=== PATIENT | female | born 1980 | race Caucasian/White ===

== ENCOUNTER 2023-01-08 02:38 | Day surgery (SDC) | payer OTHER, SELFPAY ==
[2022-12-30 15:55] VITALS: BMI 26.3
--- NOTE | 2022-12-30 16:43 | SUR.PREOP ---
Report to the Outpatient Waiting Room, entrance under the green pavilion located off [facility], at time 1100 on date 01/08/23. Planned Procedure Time: 1300. Time changes happen often and if your time is changed the preop area will call you the afternoon before. - You and your visitor will be asked to self-screen and do not enter if you have any COVID symptoms. - A mask is optional within the hospital at this time. Patients may have clear liquids (water, carbonated beverages, clear teas, apple juice) until 3 hours prior to surgery with a maximum of 20 ounces. - No food from midnight until time of surgery BEFORE 10:00 - Infants may have breast milk until 4 hours before surgery, formula 6 hours prior to surgery. - Children will be allowed to drink immediately following surgery. If applicable, please bring a bottle or sippy cup to assist with drinking. Juice, water, soda, and popsicles are readily available. For infants on formula, please bring formula the day of surgery. Pacifiers are allowed. Take the following medications with a SIP of water the morning of surgery: __ATIVAN DO NOT STOP ANY OF YOUR OTHER PRESCRIPTION MEDICATIONS PRIOR TO SURGERY ?EXCEPT THE FOLLOWING Medications to discontinue per physician ___PT STATED SHE IS STOPPING ALL CHEMO DRUGS, SUPPLEMENTS, VITAMINS, 5 DAYS PRIOR. ONCOLOGIST AWARE__ Date to take last dose Please no make-up, nail armenian, hairspray, perfume, deodorant, or body powder the day of surgery. No jewelry (including any body piercings) or valuables the day of surgery, leave them at home. Please take a shower or bath the night before, or the morning of, surgery with an antibacterial soap. Wear comfortable, loose fitting clothing. Children are encouraged to wear pajamas. - Jewelry must be removed prior to entering the operating room. Rings and piercings that are not removed may be cut off. - The hospital will not accept responsibility for valuables. - Please leave all valuables, including medications, at home the day of surgery. If you are going home after surgery, a licensed driver lifter of sanitation truck must drive you home. - NO public transportation without another adult if you receive anesthesia. - We recommend that an adult stay with you for 24 hours following discharge. - We also recommend that you do not drive, make important decision, drink alcoholic beverages, or take any drugs that were not prescribed by your health care provider for at least 24 hours after your discharge time. For Pediatric surgeries, we recommend two adults accompany the child home. Follow any additional instructions given to you from your surgeon. If you or anyone in your household have experienced Covid symptoms in the past week, please notify your surgeon or the nurse liaison at the phone number below for possible testing. Telephone instructions given to _PATIENT__and asked if any additional questions and then verbalized understanding. Patient advised to call surgeon office or pre surgery nurse liaison [phone] if any additional questions.
--- NOTE | 2023-01-07 14:12 | WPDANESEPPF ---
Anes - Initial Pre Proc Eval Procedure: Operation Date: 01/08/23 13:00 Proposed Procedures p Robotic Assisted Total Vaginal Hysterectomy with Bilateral Salpingo-oophorectomy - Paul Boland MD Date/Time: 01/07/23 14:12 Surgeon: Paul Boland MD Pre Op Diagnosis: Pain, Rodney Ovaran Cyst,Enl Uterus,Heav Bld,Fibroid Patient Data Age: 42 Gender: F Height: 1.73 m Weight: 78.48 kg Allergies Allergy/AdvReac Type Severity Reaction Status Date / Time adhesive tape Allergy Severe Blister Verified 12/30/22 16:25 CEFADROXIL HYDRATE Allergy Mild Rash Uncoded 12/30/22 16:25 Home Medications Medication Instructions Recorded Confirmed Type albuterol sulfate 90 mcg/actuation 2 puff inhalation PRN PRN SOB 12/30/22 12/30/22 History aerosol inhaler binimetinib 15 mg tablet (Mektovi) 15 mg PO BID 12/30/22 12/30/22 History budesonide-formoterol HFA 160 2 puff inhalation DAILY 12/30/22 12/30/22 History mcg-4.5 mcg/actuation aerosol inhaler (Symbicort) cholecalciferol (vitamin D3) 125 5,000 unit PO WEEKLY 12/30/22 12/30/22 History mcg (5,000 unit) tablet (Vitamin D3) docusate sodium 100 mg capsule 100 mg PO BID 12/30/22 12/30/22 History (Colace) encorafenib 75 mg capsule 75 mg PO DAILY 12/30/22 12/30/22 History (Braftovi) furosemide 40 mg tablet (Lasix) 40 mg PO DAILY PRN FLUID RETENTION 12/30/22 12/30/22 History nqvbcj-klqsqkwn-yqzhqqu 1 cap PO DAILY 12/30/22 12/30/22 History 24,000-76,000-120,000 unit capsule,delayed rel (Creon) lorazepam 0.5 mg tablet (Ativan) 0.5 mg PO HS PRN Anxiety 12/30/22 12/30/22 History multivitamin 1 tablet PO DAILY 12/30/22 12/30/22 History olaparib 150 mg tablet (Lynparza) 150 mg PO BID 12/30/22 12/30/22 History ondansetron HCl 4 mg tablet 4 mg PO Q6H PRN Nausea 12/30/22 12/30/22 History oxycodone 5 mg tablet 5 mg PO PRN PRN Pain 12/30/22 12/30/22 History prochlorperazine maleate 10 mg 10 mg PO Q6H PRN Nausea 12/30/22 12/30/22 History tablet (Compazine) hydrocodone 5 mg-acetaminophen 325 1 tablet PO Q4H PRN pain #20 tabs 01/08/23 Rx mg tablet Patient hx anesthesia problems: none Family hx anesthesia problems: none Results Review: All pre-operative results and documents have been reviewed as part of the pre-operative evaluation. [facility] Past Medical History Medical History Chronic pain Fibroid uterus Overweight (BMI 25.0-29.9) Smoker Social History Social History Years smoked: 26 Smoking status: Current every day smoker Tobacco type: cigarettes and e-cigarettes/vaping Additional smoking assessment comments: PT IS CURRENTLY USING NICOTINE VAPE Substance use type: marijuana Other substance usage details: INGESTS CANNIBAS OILS FOR PAIN CONTROL Living arrangements: with family Spiritual care concerns: No Anes - Eval Final PreProcedure Day of Procedure 01/07/23 14:12 Patient weight: overweight Heart: regular rate and rhythm Lungs: clear to auscultation and normal air movement Airway: Mallampati scale class II Neurological: alert and oriented Last oral intake: >/= 8 hours ASA classification: III Emergent: no Anesthetic plan: proceed Anesthesia type and monitoring: general ETT Results Review: All pre-operative results and documents have been reviewed as part of the pre-operative evaluation. Informed Consent: The patient's anesthetic plan and its attendant risks and benefits were discussed with the patient/family/POA. Questions were solicited and answers provided to the satisfaction of the patient/family/POA.
--- NOTE | 2023-01-07 16:20 | PM.IMHP ---
H&P: HPI History of Present Illness Date/Time: 01/07/23 16:20 Chief Complaint: Pain and irregular bleeding Narrative: is a 42-year-old female with complex right ovarian cyst and enlarged uterus. She has a history of cancer for which she has been treated she is admitted for hysterectomy and bilateral salpingo-oophorectomy risks and benefits reviewed great detail [facility] Past Medical History Medical History Chronic pain Fibroid uterus Overweight (BMI 25.0-29.9) Smoker Social History Social History Years smoked: 26 Smoking status: Current every day smoker Tobacco type: cigarettes and e-cigarettes/vaping Additional smoking assessment comments: PT IS CURRENTLY USING NICOTINE VAPE Substance use type: marijuana Other substance usage details: INGESTS CANNIBAS OILS FOR PAIN CONTROL Living arrangements: with family Spiritual care concerns: No Meds Home Medications and Allergies Home Medications Medication Instructions Recorded Confirmed Type albuterol sulfate 90 mcg/actuation 2 puff inhalation PRN PRN SOB 12/30/22 12/30/22 History aerosol inhaler binimetinib 15 mg tablet (Mektovi) 15 mg PO BID 12/30/22 12/30/22 History budesonide-formoterol HFA 160 2 puff inhalation DAILY 12/30/22 12/30/22 History mcg-4.5 mcg/actuation aerosol inhaler (Symbicort) cholecalciferol (vitamin D3) 125 5,000 unit PO WEEKLY 12/30/22 12/30/22 History mcg (5,000 unit) tablet (Vitamin D3) docusate sodium 100 mg capsule 100 mg PO BID 12/30/22 12/30/22 History (Colace) encorafenib 75 mg capsule 75 mg PO DAILY 12/30/22 12/30/22 History (Braftovi) furosemide 40 mg tablet (Lasix) 40 mg PO DAILY PRN FLUID RETENTION 12/30/22 12/30/22 History tybenr-hmvjwero-aajkmoj 1 cap PO DAILY 12/30/22 12/30/22 History 24,000-76,000-120,000 unit capsule,delayed rel (Creon) lorazepam 0.5 mg tablet (Ativan) 0.5 mg PO HS PRN Anxiety 12/30/22 12/30/22 History multivitamin 1 tablet PO DAILY 12/30/22 12/30/22 History olaparib 150 mg tablet (Lynparza) 150 mg PO BID 12/30/22 12/30/22 History ondansetron HCl 4 mg tablet 4 mg PO Q6H PRN Nausea 12/30/22 12/30/22 History oxycodone 5 mg tablet 5 mg PO PRN PRN Pain 12/30/22 12/30/22 History prochlorperazine maleate 10 mg 10 mg PO Q6H PRN Nausea 12/30/22 12/30/22 History tablet (Compazine) Allergies Allergy/AdvReac Type Severity Reaction Status Date / Time adhesive tape Allergy Severe Blister Verified 12/30/22 16:25 CEFADROXIL HYDRATE Allergy Mild Rash Uncoded 12/30/22 16:25 Exam Const: General: cooperative, healthy appearing and comfortable Nutritional Appearance: average body habitus Orientation/consciousness: oriented to person, oriented to place and oriented to time HENMT: Head: normal to inspection Resp: Effort & Inspection: normal respiratory effort Cardio: Rate: regular rate Rhythm: regular rhythm Heart sounds: S1 normal heart sound present and S2 normal heart sound present GI: Inspection: normal to inspection : External Female Exam: normal external appearance Speculum Exam - Vagina: normal appearance of the vagina Speculum Exam - Cervix: normal appearance of the cervix Bimanual exam- vagina & uterus: enlarged Bimanual Exam- Adnexa, other: tender on the right Assessment and Plan Assessment and plan (1) Enlarged uterus: Code(s): N85.2 - Hypertrophy of uterus Status: Acute (2) Excessive bleeding: Code(s): R58 - Hemorrhage, not elsewhere classified Status: Acute (3) Bilateral ovarian cysts: Code(s): N83.201 - Unspecified ovarian cyst, right side; N83.202 - Unspecified ovarian cyst, left side Status: Acute Plan robotic total vaginal hysterectomy and bilateral salpingo-oophorectomy
[2023-01-08] VITALS (12 sets, daily range): BP systolic 101–140; BP diastolic 63–91; PULSE 71–119; RESP 12–22; TEMP 36.4–37.2; O2SAT 93–100; BMI 24.4
--- NOTE | ~2023-01-08 | CT_ITS ---
EXAMINATION: CT abdomen pelvis wo con DATE: 01/09/2023 12:26 INDICATION: Recent hysterectomy. Evaluate for abdominal hemorrhage. TECHNIQUE: Computed tomography (CT) of the abdomen and pelvis was performed without intravenous contr ast. Automated exposure control and iterative reconstruction technique were employed. Exam dose: 627 .77 mGy-cm total exam DLP. COMPARISON: 02/25/2018 CT chest abdomen pelvis FINDINGS: There is prominent discoid atelectasis in both lower lobes, predominantly dependent. Normal heart size. There is trace pericardial fluid. No pleural effusion. There is relatively high attenuation fluid around the liver, spleen, in Morison's pouch, the paracoli c gutters and pelvis, consistent with hemorrhage. There is free air within the abdomen and pelvis, with intraperitoneal air-fluid levels identified in both anterior upper quadrants. There is subcutaneous emphysema of the anterior abdominal wall. There is edema of the abdominal wall, right greater than left, possibly positional. Status post cholecystectomy. Radiopaque sutures are noted along the left lateral margin of the liver, consistent with history of partial hepatic resection. No hepatic, splenic, pancreatic, and adrenal or renal space-occupying mass lesion or urinary tract ca lculus is identified. Mild atherosclerotic calcification of the abdominal aorta. No abdominal aortic aneurysm. No abdominal or pelvic adenopathy is noted.. Mild degenerative spurring of the thoracic spine and minimal degenerative spurring of the lumbar spin e. No suspicious osteolytic or osteoblastic lesions are noted. IMPRESSION: Prominent amount of high density free fluid within the abdomen and pelvis consistent wit h a large amount of hemorrhage Intraperitoneal free air which is most likely postoperative in nature; ruptured hollow abdominal visc us cannot be excluded Prominent bilateral dependent lower lobe atelectasis Trace pericardial effusion Status post cholecystectomy Partial left hepatic surgical resection Dr. Gama telephoned the report on 01/09/2023 at 1320 hours to Nurse Li Reviewed, dictated and finalized at [facility]. Reviewed, dictated and finalized at [facility]. IMPRESSION: Prominent amount of high density free fluid within the abdomen and pelvis consistent with a large amount of hemorrhage Intraperitoneal free air which is most likely postoperative in nature; ruptured hollow abdominal viscus cannot be excluded Prominent bilateral dependent lower lobe atelectasis Trace pericardial effusion Status post cholecystectomy Partial left hepatic surgical resection Dr. Gama telephoned the report on 01/09/2023 at 1320 hours to Nurse Jen
--- NOTE | 2023-01-08 07:19 | WPDHPUPDATE1 ---
History and Physical Update Update Date/Time: 01/08/23 07:19 History and Physical has been reviewed, including an updated exam of the patient. There are NO changes in the patient's condition. Risks, benefits, and alternatives have been discussed and questions answered. Patient agrees to proceed with procedure.
[2023-01-08] MEDS: LACTATED RINGERS 1,000 ML 30 ML IV CONT ×2 (12:05→14:47)
[2023-01-08] MEDS: ACETAMINOPHEN 500 MG TABLET 1000 MG PO (12:12)
[2023-01-08] MEDS: KETOROLAC 15 MG/ML VIAL (*BKC) IV PUSH (12:12)
[2023-01-08] MEDS: SCOPOLAMINE 1.5 MG PATCH TRANSDERM (12:13)
[2023-01-08] MEDS: ceFAZolin 2 GM/D5W 50 ML 2 GM/50 ML BAG IVPB (12:20)
--- NOTE | 2023-01-08 14:38 | W.PM.PROC2 ---
Procedure Note - Detailed Date of Procedure 01/08/23 Pre-op Diagnosis Pain, Rodney Ovaran Cyst,Enl Uterus,Heav Bld,Fibroid Post-op Diagnosis Other (Pelvic pain enlarged uterus with heavy bleeding / right adnexal mass that appears to be cancerous) Procedure Performed robotic supracervical hysterectomy with left salpingo-oophorectomy and right salpingectomy. Biopsy of right adnexal Surgeon Paul Boland MD Anesthesia General Indications this is 42-year-old female with a history of stage IV and melanoma with an adnexal mass on the right. She was admitted for robotic total vaginal hysterectomy salpingo-oophorectomy. However the right adnexal mass was completely involved in the right fallopian tube and the colon and was not resectable. Findings Enlarged uterus with an IUD in it. Normal-appearing left ovary and tube. Large adnexal mass that was at a joint to the colon the posterior surface of the cervix and appendix. It appeared to be somewhat necrotic in nature. Description of Procedure Patient was prepped draped in normal sterile fashion placed in the dorsal lithotomy position. Under excellent general trach anesthesia weighted speculum placed posterior fornix vagina. Anterior lip of the cervix grasped with single-tooth tenaculum. Uterus sounded to 10cm. Serial dilatation with fragmented dilators performed followed passes the number 8 SUKHWINDER and the 3. 0.5 cold cup. Next the 16 Romansh catheter was placed in bladder draining clear urine. The weighted speculum was removed and the gloves were changed. A supraumbilical incision made the Veress needle passed in the abdomen. Abdomen filled with CO2 gas to 15mm. With 8mm trocar advanced in the abdomen downside visualized and seen. Patient placed in Trendelenburg and left and right lateral quadrant incisions made. 8Mm trocars advanced under direct visualization. A right upper quadrant incision made and the 8mm trocar advanced under direct visualization assuring injury. Large adnexal mass was seen on right. The left ovary and tube appeared within normal limits. The left round ligament grasped, burned, cut. Anterior bladder flap was formed by sharply dissecting the peritoneum and reflecting the bladder caudally away from the cervix uterus the opposite ligament was clamped, burned, cut. Next the infundibulopelvic structure on left was skeletonized clamping burning cutting and bringing this to level of previously cut round ligament left. At that point the right adnexa was noted to be markedly adherent and was adherent to the cervix. It was able to be relieved from the posterior surface of the uterus. But the adnexa did not appear to be mobile and be able to be removed. The right fallopian tube was then sharply dissected away the ovarian/ bowel mass and left attached to the portion uterus. The left cardinal broad ligaments were then serially skeletonized clamping burning cutting irregular descent down to the uterine vessels on the left were clamped, burned, cut. In like fashion the cardinal and broad ligaments on skeletonized clamping burning cutting and bringing this down to the level uterine vessels on the right at that point it was felt that there was no ability to remove the ovarian mass and biopsy was taken. It bled very easily and with dangerous to attempt to removed. Irrigation was then undertaken until clear and a supracervical incision was made. The uterus was then cut into 2 pieces after the IUD was removed from the inside of the uterus. The left ovary and tube and right tube removed through the right upper quadrant incision. Two bags were placed in the right upper quadrant and these were brought up through the right upper quadrant incision. Irrigation was undertaken to clear hemostasis was assured. The robot was undocked the incisions closed with 4 Monocryl and glue after closing with running 0 Vicryl on the upper right upper quadrant incision on the fascia. Blood loss was estimated 200cc
[2023-01-08] MEDS: fentaNYL CITRATE INJ (*CRX) 100 MCG/2 ML VIAL 25 MCG IV PUSH ×5 (15:02→15:28)
[2023-01-08] MEDS: HYDROmorphone HCL INJ (*CRX) 1 MG/ML SYR 0.5 MG IV PUSH ×2 (15:38→15:52)
[2023-01-08] MEDS: KETOROLAC 30 MG/ML VIAL (*BKC) IV PUSH ×2 (16:54→23:18)
[2023-01-08] MEDS: DEXTROSE 5%/LACTATED RINGERS 1,000 ML 125 ML IV CONT ×2 (16:55→23:19)
--- NOTE | 2023-01-08 17:05 | ADMGEN ---
1620-This patient, Hien Soriano, was admitted to OB 2nd Floor Room 289-00. Patient/family oriented to hospital policies and general routines including ID bracelet, bed and alarms, visiting hours, pain management, procedures, bathroom and other care routines, personal items, smoking policy, room service/diet, and visiting hours. Information on how to activate the Rapid Response Team has been discussed. Patient/Family are encouraged to report perceived risks to care and to ask questions if they do not understand what they are told or what they should do.
[2023-01-08] MEDS: ONDANSETRON INJ 4 MG/2 ML VIAL IV PUSH (18:37)
[2023-01-08] MEDS: PROCHLORPERAZINE EDISYLATE 10 MG/2 ML VIAL IV PUSH (19:13)
[2023-01-09] MEDS: HYDROcodone/acetaminophen (*CRX) 5-325 MG TABLET 1 TAB PO ×2 (00:14→09:04)
--- NOTE | 2023-01-09 05:16 | PM.DS ---
DS: Admitting Diagnosis Discharge Date 01/09/2023 Admitting Diagnosis enlarged uterus / vaginal bleeding/bilateral ovarian cysts DS: Discharge Diagnosis Discharge Diagnosis (1) Bilateral ovarian cysts: Code(s): N83.201 - Unspecified ovarian cyst, right side; N83.202 - Unspecified ovarian cyst, left side Status: Acute (2) Excessive bleeding: Code(s): R58 - Hemorrhage, not elsewhere classified Status: Acute (3) Enlarged uterus: Code(s): N85.2 - Hypertrophy of uterus Status: Acute DS: Summary Hospital Course Reason for hospitalization: patient was originally admitted for robotic total vaginal hysterectomy and bilateral salpingo-oophorectomy secondary to enlarged uterus and bilateral ovarian cysts. Hospital Course: The patient's surgical procedure was altered to a supracervical hysterectomy left salpingo-oophorectomy and right salpingectomy with biopsy of right adnexal mass. In surgery in mass with the low consistent with a cancerous lesion was noted. It was necrotic in attached to the cecum and appendix. It could not be resected safely. Biopsy was sent and is pending at this point. Her hospital course was unremarkable. She remained afebrile. She was up, voiding without difficulty, eating regular diet, and generally without complaints. Time Spent with Patient Time attestation: Total time spent providing and/or coordinating discharge services: Exam Const: General: cooperative, healthy appearing and comfortable Nutritional Appearance: average body habitus Orientation/consciousness: oriented to person, oriented to place and oriented to time Resp: Effort & Inspection: normal respiratory effort Cardio: Rate: regular rate Rhythm: regular rhythm Heart sounds: S1 normal heart sound present and S2 normal heart sound present GI: Inspection: normal to inspection and incision ( Wounds are clean dry and intact) DS: Data Data Completed and Pending Pending studies at discharge: Pending at discharge 01/08/23 13:32 Surgical [PTH] Routine Labs on day of discharge: Labs from last 24 hours 01/08/23 12:05 Blood Type A Positive Antibody Screen Negative Discharge Plan Discharge Patient Disposition: Home, Self-Care Stand Alone Forms: General Discharge Instructions Follow-up/Referrals: Paul William MD [Physician] - Discharge Medications: New hydrocodone-acetaminophen 5-325 mg tablet 1 tablet PO Q4H PRN (Reason: pain) Qty: 20 0RF No Action oxycodone 5 mg tablet 5 mg PO PRN PRN (Reason: Pain) Rx Instructions: EVERY 4 HRS, PRN docusate sodium [Colace] 100 mg Capsule 100 mg PO BID prochlorperazine maleate [Compazine] 10 mg Tablet 10 mg PO Q6H PRN (Reason: Nausea) ondansetron HCl [Zofran] 4 mg Tablet 4 mg PO Q6H PRN (Reason: Nausea) budesonide-formoterol [Symbicort] 160-4.5 mcg/actuation HFA aerosol inhaler 2 puff INHALATION DAILY Creon 24,000-76,000 -120,000 unit capsule,delayed release(DR/EC) 1 cap PO DAILY cholecalciferol (vitamin D3) [Vitamin D3] 125 mcg (5,000 unit) Tablet 5,000 unit PO WEEKLY albuterol sulfate 90 mcg/actuation HFA aerosol inhaler 2 puff INHALATION PRN PRN (Reason: SOB) furosemide [Lasix] 40 mg Tablet 40 mg PO DAILY PRN (Reason: FLUID RETENTION) lorazepam [Ativan] 0.5 mg Tablet 0.5 mg PO HS PRN (Reason: Anxiety) multivitamin Tablet 1 tablet PO DAILY Mektovi 15 mg tablet 15 mg PO BID Rx Instructions: PT TAKES 3 TABLETS Braftovi 75 mg capsule 75 mg PO DAILY Rx Instructions: PT TAKES 6 CAPSULES DAILY Lynparza 150 mg Tablet 150 mg PO BID Rx Instructions: PT TAKES 2 TABS
--- NOTE | 2023-01-09 05:19 | PM.GYNPNOP ---
[employer] SUPERVISOR - A/P Postoperative Procedures: Procedures Operation Date: 01/08/23 13:00 Actual Procedure Side Surgeon p Robotic Assisted Total Supracervical Hysterectomy with Left Salpingo-oophorectomy, Right Salpingectomy, Biopsy Right Adnexal Mass Not Applicable Paul Boland MD Postoperative day: 1 Postoperative status: doing well Postoperative plan: routine post-op care, see orders and advance diet Time Spent With Patient Time: Total time spent is greater than 50% in coordination of care (as documented) at patient's floor/unit and/or counseling patient: Time with patient: less than 15 minutes PRESS [employer] SUPERVISOR- PN:Subj Post-Op Subjective Date/time seen: 01/09/23 05:19 Subjective: patient reports feeling better, patient has no complaints, pain is well controlled and patient is tolerating oral intake Exam Const: General: cooperative, healthy appearing and comfortable Nutritional Appearance: average body habitus Orientation/consciousness: oriented to person, oriented to place and oriented to time HENMT: Head: normal to inspection Resp: Effort & Inspection: normal respiratory effort Cardio: Rate: regular rate Rhythm: regular rhythm Heart sounds: S1 normal heart sound present and S2 normal heart sound present GI: Inspection: normal to inspection and incision ( wounds are clean dry and intact) [employer] SUPERVISOR - PN: Obj Data Vital Signs Vital Signs: Vital Signs - 24 hr 01/08/23 11:15 01/08/23 14:46 01/08/23 15:00 Temperature 98.1 F 97.7 F Pulse Rate 119 H 82 81 Respiratory Rate 16 22 H 20 Blood Pressure 101/75 134/77 128/76 Pulse Oximetry 99 100 97 Oxygen Delivery Room Air Simple Face Mask Simple Face Mask Oxygen Flow Rate 6 6 01/08/23 15:15 01/08/23 15:30 01/08/23 15:45 Temperature Pulse Rate 80 77 72 Respiratory Rate 16 16 12 Blood Pressure 140/76 120/78 104/91 H Pulse Oximetry 96 96 96 Oxygen Delivery Room Air Room Air Room Air Oxygen Flow Rate 01/08/23 16:00 01/08/23 16:10 01/08/23 16:30 Temperature 98.1 F Pulse Rate 82 79 79 Respiratory Rate 16 16 16 Blood Pressure 122/72 126/68 121/71 Pulse Oximetry 93 93 98 Oxygen Delivery Room Air Room Air Oxygen Flow Rate 01/08/23 16:30 01/08/23 19:00 01/08/23 20:00 Temperature 97.6 F Pulse Rate 79 71 71 Respiratory Rate 16 18 18 Blood Pressure 113/67 Pulse Oximetry 98 100 100 Oxygen Delivery Room Air Room Air Oxygen Flow Rate 01/08/23 23:10 01/08/23 23:10 Temperature 98.9 F Pulse Rate 85 85 Respiratory Rate 18 18 Blood Pressure 101/63 Pulse Oximetry 99 99 Oxygen Delivery Room Air Oxygen Flow Rate Intake/Output Intake/Output: Intake & Output 01/06/23 01/07/23 01/08/23 01/09/23 23:59 23:59 23:59 23:59 Intake Total 1815 Output Total 450 Balance 1365 Meds/Results Medications: Active Medications Generic Name Dose Route Start Last Admin Trade Name Freq PRN Reason Stop Dose Admin Hydrocodone Bitart/Acetaminophen 1 tab 01/08/23 16:19 Hydrocodone/Acetaminophen (*Crx) 10-325 Mg Tablet PO Q3H PRN Pain Rated 6 or Greater Hydrocodone Bitart/Acetaminophen 1 tab 01/08/23 16:19 01/09/23 00:14 Hydrocodone/Acetaminophen (*Crx) 5-325 Mg Tablet PO 1 tab Q3H PRN Administration Pain Rated 5 or Less Docusate Sodium 100 mg 01/08/23 17:00 01/08/23 16:55 Docusate Sodium 100 Mg Capsule PO Not Given BID MIESHA Enoxaparin Sodium 40 mg 01/09/23 09:00 Enoxaparin 40 Mg/0.4 Ml Syringe SUB-Q DAILY MIESHA Dextrose/Lactated Ringer's 1,000 mls @ 125 mls/hr 01/08/23 16:19 01/08/23 23:19 Dextrose 5%/Lactated Ringers IV CONT 125 mls/hr .Q8H MIESHA Administration Ibuprofen 600 mg 01/08/23 16:19 Ibuprofen 600 Mg Tablet PO Q6H PRN Cramping Ketorolac Tromethamine 30 mg 01/08/23 16:19 01/08/23 23:18 Ketorolac 30 Mg/Ml Vial (*Bkc) IV PUSH 01/13/23 16:18 30 mg Q6H PRN Administration Pain Rated 4-6 Naloxone HCl 0.1 mg 01/08/23 16:19 Naloxone
[2023-01-09 05:30] VITALS: PULSE 81; RESP 18; O2SAT 97
[2023-01-09 05:35] VITALS: BP 93/47; PULSE 81; RESP 18; TEMP 37.2; O2SAT 97
[2023-01-09] MEDS: KETOROLAC 30 MG/ML VIAL (*BKC) IV PUSH (05:49)
[2023-01-09 06:17] LABS: Basophils Percent Auto 0.2 % (0.2-1.2); Eosinophils Absolute Auto 0.3 K/mm3 (0-0.3); Eosinophils Percent Auto 2.9 % (0-4.4); Hematocrit 28.7 % (37.0-47.0); Hemoglobin 8.8 g/dL (12.0-15.0); Immature Granulocyte Absolute 0.05 K/mm3 (0.00-0.031); Immature Granulocyte Percent A 0.5 % (0-0.5); Lymphocytes Absolute Auto 0.89 K/mm3 (0.9-3.2); Lymphocytes Percent Auto 8.1 % (18.3-44.2); Mean Corpuscular HGB Conc 30.7 g/dl (32-36); Mean Corpuscular Hemoglobin 34.2 pg (26-34); Mean Corpuscular Volume 111.7 fl (80-100); Mean Platelet Volume 9.5 fl (7.4-10.4); Monocytes Absolute Auto 0.7 K/mm3 (0.1-0.6); Monocytes Percent Auto 6.3 % (2.6-8.5); Platelet Count Result 311 k/mm3 (150-375); Red Blood Count 2.57 M/mm3 (4.2-5.4); Red Cell Distribution Width 13.3 % (11.5-14.5); White Blood Count 10.9 K/mm3 (4.5-10.0)
[2023-01-09] MEDS: DEXTROSE 5%/LACTATED RINGERS 1,000 ML 125 ML IV CONT (07:04)
[2023-01-09] MEDS: ONDANSETRON INJ 4 MG/2 ML VIAL IV PUSH ×2 (08:22→17:24)
[2023-01-09 08:25] VITALS: BP 115/62; PULSE 80; RESP 16; TEMP 36.9; O2SAT 100
[2023-01-09] MEDS: DOCUSATE SODIUM 100 MG CAPSULE PO ×2 (09:04→17:22)
[2023-01-09] MEDS: ENOXAPARIN 40 MG/0.4 ML SYRINGE SUB-Q (09:04)
[2023-01-09 11:15] VITALS: BP 106/72; PULSE 75; RESP 16; TEMP 36.7; O2SAT 100
[2023-01-09] MEDS: ALPRAZolam (*CRX) 0.25 MG TABLET PO ×2 (11:18→20:30)
[2023-01-09] MEDS: HYDROcodone/acetaminophen (*CRX) 10-325 MG TABLET 1 TAB PO ×3 (12:10→20:29)
--- NOTE | 2023-01-09 12:16 | PC.NURSE ---
Patient to CT scan via wheelchair.
--- NOTE | 2023-01-09 13:19 | WPDANESPN ---
Anes - Prog Note Post-Op Date/Time: 01/09/23 13:19 Cardiovascular status: normal Respiratory status: normal Airway patency: baseline Mental status: baseline Post-Op hydration status: normal Vital Signs: Last Vital Signs Temp 36.7 C 01/09/23 11:15 Pulse 75 01/09/23 11:15 Resp 16 01/09/23 11:15 BP 106/72 01/09/23 11:15 Pulse Ox 100 01/09/23 11:15 O2 Del Method Room Air 01/09/23 11:15 O2 Flow Rate 6 01/08/23 15:00 Pain Score (VAS): 09/04 I/O: Intake & Output 01/08/23 01/09/23 01/09/23 23:59 07:59 15:59 Intake Total 1815 1220 Output Total 400 200 150 Balance 1415 1020 -150 Laboratory Tests 01/09/23 06:04 01/08/23 01/09/23 12:05 06:04 WBC 10.9 H RBC 2.57 L Hgb 8.8 L Hct 28.7 L MCV 111.7 H MCH 34.2 H MCHC 30.7 L RDW 13.3 Plt Count 311 MPV 9.5 Immature Gran % (Auto) 0.5 Neut % (Auto) 82.0 H Lymph % (Auto) 8.1 L [place] % (Auto) 6.3 Eos % (Auto) 2.9 Baso % (Auto) 0.2 Lymph # (Auto) 0.89 L [place] # (Auto) 0.7 H Eos # (Auto) 0.3 Baso # (Auto) 0.0 Abs Immat Gran (auto) 0.05 H Absolute Neuts (auto) 9.0 H Absolute Nucleated RBC 0.0 Nucleated RBC % 0.0 Blood Type A Positive Antibody Screen Negative Post-procedural complaints: none Patient Feedback: Patient satisfied with anesthetic care.
[2023-01-09 18:30] VITALS: BP 111/71; PULSE 83; RESP 18; TEMP 36.5; O2SAT 100
[2023-01-10] MEDS: HYDROcodone/acetaminophen (*CRX) 10-325 MG TABLET 1 TAB PO ×2 (04:23→07:31)
[2023-01-10 05:15] LABS: Hematocrit 23.7 % (37.0-47.0); Hemoglobin 7.9 g/dL (12.0-15.0)
[2023-01-10] MEDS: ALPRAZolam (*CRX) 0.25 MG TABLET PO (05:17)
[2023-01-10 05:23] VITALS: BP 92/48; PULSE 82; RESP 16; O2SAT 100
[2023-01-10 07:30] VITALS: BP 107/69; PULSE 85; RESP 16; TEMP 36.8; O2SAT 99
--- NOTE | 2023-01-10 07:38 | PM.GYNPNOP ---
AIRPLANE ELECTRICIAN - A/P Postoperative Procedures: Procedures Operation Date: 01/08/23 13:00 Actual Procedure Side Surgeon p Robotic Assisted Total Supracervical Hysterectomy with Left Salpingo-oophorectomy, Right Salpingectomy, Biopsy Right Adnexal Mass Not Applicable Paul Boland MD Postoperative status: doing well Postoperative plan: routine post-op care, ambulate and advance diet Time Spent With Patient Time: Total time spent is greater than 50% in coordination of care (as documented) at patient's floor/unit and/or counseling patient: Time with patient: less than 15 minutes AIRPLANE ELECTRICIAN- PN:Subj Post-Op Subjective Date/time seen: 01/10/23 07:38 Subjective: patient reports feeling better, patient desires discharge and patient is tolerating oral intake Exam Const: General: cooperative, healthy appearing and comfortable Nutritional Appearance: average body habitus Orientation/consciousness: oriented to person, oriented to place and oriented to time HENMT: Head: normal to inspection Resp: Effort & Inspection: normal respiratory effort Cardio: Rate: regular rate Rhythm: regular rhythm Heart sounds: S1 normal heart sound present and S2 normal heart sound present GI: Inspection: normal to inspection and incision ( wounds are clean dry and intact) AIRPLANE ELECTRICIAN - PN: Obj Data Vital Signs Vital Signs: Vital Signs - 24 hr 01/09/23 08:25 01/09/23 08:25 01/09/23 11:15 Temperature 98.4 F 98.1 F Pulse Rate 80 75 Respiratory Rate 16 16 Blood Pressure 115/62 106/72 Pulse Oximetry 100 100 Oxygen Delivery Room Air 01/09/23 11:15 01/09/23 18:30 01/10/23 05:23 Temperature 97.7 F Pulse Rate 83 82 Respiratory Rate 18 16 Blood Pressure 111/71 92/48 L Pulse Oximetry 100 100 Oxygen Delivery Room Air Intake/Output Intake/Output: Intake & Output 01/07/23 01/08/23 01/09/23 01/10/23 23:59 23:59 23:59 23:59 Intake Total 1815 2220 240 Output Total 450 700 600 Balance 1365 1520 -360 Meds/Results Medications: Active Medications Generic Name Dose Route Start Last Admin Trade Name Freq PRN Reason Stop Dose Admin Hydrocodone Bitart/Acetaminophen 1 tab 01/08/23 16:19 01/10/23 07:31 Hydrocodone/Acetaminophen (*Crx) 10-325 Mg Tablet PO 1 tab Q3H PRN Administration Pain Rated 6 or Greater Hydrocodone Bitart/Acetaminophen 1 tab 01/08/23 16:19 01/09/23 09:04 Hydrocodone/Acetaminophen (*Crx) 5-325 Mg Tablet PO 1 tab Q3H PRN Administration Pain Rated 5 or Less Alprazolam 0.25 mg 01/09/23 11:08 01/10/23 05:17 Alprazolam (*Crx) 0.25 Mg Tablet PO 0.25 mg Q8HR PRN Administration Anxiety Docusate Sodium 100 mg 01/08/23 17:00 01/09/23 17:22 Docusate Sodium 100 Mg Capsule PO 100 mg BID MIESHA Administration Enoxaparin Sodium 40 mg 01/09/23 09:00 01/09/23 09:04 Enoxaparin 40 Mg/0.4 Ml Syringe SUB-Q 40 mg DAILY MIESHA Administration Dextrose/Lactated Ringer's 1,000 mls @ 125 mls/hr 01/08/23 16:19 01/10/23 06:26 Dextrose 5%/Lactated Ringers IV CONT Not Given .Q8H MIESHA Ibuprofen 600 mg 01/08/23 16:19 Ibuprofen 600 Mg Tablet PO Q6H PRN Cramping Ketorolac Tromethamine 30 mg 01/08/23 16:19 01/09/23 05:49 Ketorolac 30 Mg/Ml Vial (*Bkc) IV PUSH 01/13/23 16:18 30 mg Q6H PRN Administration Pain Rated 4-6 Naloxone HCl 0.1 mg 01/08/23 16:19 Naloxone Hcl 0.4 Mg/Ml Vial IV PUSH Q2M PRN Respiratory rate less than 10 Ondansetron HCl 4 mg 01/08/23 16:19 01/09/23 17:24 Ondansetron Inj 4 Mg/2 Ml Vial IV PUSH 4 mg Q6H PRN Administration Nausea And Vomiting Prochlorperazine Edisylate 10 mg 01/08/23 18:52 01/08/23 19:13 Prochlorperazine Edisylate 10 Mg/2 Ml Vial IV PUSH 10 mg Q6H PRN Administration Nausea And Vomiting Simethicone 80 mg 01/08/23 16:19 Simethicone 80 Mg Tab.Chew PO Q2H PRN Gas Radiology Results: ITS Impressions Abdomen/Pelvis CT 01/09/23 13:04
== END 2023-01-10 08:19 | disposition home or self-care (01) ==
LOC: ANHSURGERY 11:12 → ANHOB2 16:28
PROVIDERS: Visit Provider Obstetrics & Gynecology
PROC: (CPT 58542; principal; 2023-01-08 13:00)
DX: C79.63 Secondary malignant neoplasm of bilateral ovaries (principal); C79.89 Secondary malignant neoplasm of other specified sites; C79.82 Secondary malignant neoplasm of genital organs; D25.1 Intramural leiomyoma of uterus; G89.29 Other chronic pain; F17.290 Nicotine dependence, other tobacco product, uncomplicated; F12.90 Cannabis use, unspecified, uncomplicated; Z79.51 Long term (current) use of inhaled steroids
CPT/HCPCS: 58542; S2900; 36415; 74176; 85014; 85018; 85025; 86850; 86900; 86901; 88305; 88307; 88342; 99199; A9270; J0690; J0780; J1100; J1170; J1650; J1885; J2250; J2405; J2704; J3010; J7030; J7120; J7121

== ENCOUNTER 2023-01-13 14:22 | Observation (INO) | payer OTHER, SELFPAY ==
--- NOTE | ~2023-01-13 | CT_ITS ---
EXAMINATION: CT abdomen pelvis wo con DATE: 01/15/2023 07:56 INDICATION: Recheck postoperative pelvic hematoma TECHNIQUE: Computed tomography (CT) of the abdomen and pelvis was performed without intravenous contr ast. Automated exposure control and iterative reconstruction technique were employed. The dose-length product was 656.05 mGy-cm. COMPARISON: CT dated 01/13/2023 and 01/09/2023 FINDINGS: Mild atelectasis at the bilateral lung bases, left greater than right. Heart size is normal. No peric ardial or pleural effusion. Postoperative change of prior cholecystectomy and left hepatectomy. Splee n, pancreas, bilateral adrenal glands and kidneys are normal. No dilated bowel to suggest obstruction or ileus. Mild scattered degenerative skeletal changes. There are also changes of recent hysterectomy. No interval change in a couple loculated fluid collect ions in the pelvis, the larger more anterior to the mass effect from the dome of the bladder measures 13.3 x 6.1 x 7.7 cm, previously 12.7 x 6.5 x 7.3 cm and the smaller more posterior collection in the cul-de-sac measuring 8.9 x 6.0 x 4.9 cm and previously 8.7 x 6.1 x 4.9 cm. Again seen is extensive b fay wall edema about the abdomen and pelvis with interval decrease in a few scattered small foci of g as in the anterior abdominal wall likely related to prior surgery. In addition to the pelvic fluid co llections which at increased since the earliest postoperative imaging on 01/09/2023, there are multipl e additional masses which have been without interval change scattered throughout the abdomen and pelv is with heterogeneous lower central attenuation suspicious for peritoneal metastatic disease. IMPRESSION: 1. No interval change in a couple loculated fluid collections in the pelvis which represent postopera tive hematomas or abscesses in the appropriate clinical setting. 2. Multiple intraperitoneal masses which have remained stable suspicious for metastatic disease. Reviewed, dictated and finalized at location A. IMPRESSION: 1. No interval change in a couple loculated fluid collections in the pelvis whi ch represent postoperative hematomas or abscesses in the appropriate clinical s etting. 2. Multiple intraperitoneal masses which have remained stable suspicious for me tastatic disease.
--- NOTE | ~2023-01-13 | CT_ITS ---
EXAMINATION: CT abdomen pelvis w con DATE: 01/13/2023 16:22 INDICATION: Lower pelvic pain and fever post hysterectomy TECHNIQUE: Computed tomography (CT) of the abdomen and pelvis was performed with 100 mL Omnipaque-350 intravenous contrast. Automated exposure control and iterative reconstruction technique were employe d. The dose-length product was 865.39 mGy-cm. COMPARISON: 01/09/2023 FINDINGS: Discoid atelectasis at the left lung base. Heart size normal. No pericardial or pleural effusion. Pos toperative change of prior left hepatectomy and cholecystectomy. Liver, spleen, pancreas, bilateral a drenal glands and kidneys are normal. No bowel obstruction. Again seen is a small amount of free intr aperitoneal gas and fluid along with small amount of soft tissue gas along the anterior abdominal wal l consistent with reported history of recent hysterectomy. There is a small amount of free fluid scat tered throughout the abdomen and pelvis. There are also multiple heterogeneously enhancing intraperit diane masses, many with central low attenuation suspicious for intraperitoneal metastatic disease. Fo r reference there is includes an 8.6 x 5.1 x 8.7 cm heterogeneous enhancing intracranial mass in the right lower quadrant. There does however appear to be a new central low attenuation lesion with thinn er peripheral enhancing wall in the lower pelvis which exerts increasing mass effect upon the posteri or dome of the bladder which suggests at least a postoperative hematoma or abscess. This measures sarah roximately 9.5 x 5.4 x 6.8 cm. There appears be communication to a smaller approximately 6.5 x 4.5 x 4.5 similar collection in the cul-de-sac. Mild lumbar levocurvature. Mild scattered degenerative skel etal changes. No suspicious lytic or blastic bone lesions identified. Diffuse body wall edema. IMPRESSION: 1. Enlarging peripherally enhancing fluid collection the pelvis which could represent hematoma or abs cess in the appropriate clinical setting. In place is difficult to distinguish from multiple enhancin g intracranial masses suspicious for metastatic disease which includes an 8.6 cm mass in the right lo wer quadrant. 2. Postoperative change of recent hysterectomy. Reviewed, dictated and finalized at location A. IMPRESSION: 1. Enlarging peripherally enhancing fluid collection the pelvis which could rep resent hematoma or abscess in the appropriate clinical setting. In place is dif ficult to distinguish from multiple enhancing intracranial masses suspicious fo r metastatic disease which includes an 8.6 cm mass in the right lower quadrant. 2. Postoperative change of recent hysterectomy.
[2023-01-13 14:29] VITALS: BP 103/81; PULSE 103; RESP 20; TEMP 36.6; O2SAT 98
[2023-01-13] MEDS: SODIUM CHLORIDE 0.9% IV 1,000 ML 999 ML (14:34)
--- NOTE | 2023-01-13 14:34 | ECG_ITS ---
Measurements Intervals Amma Rate: 103 P: 69 ME: 123 QRS: 2 QRSD: 93 T: 69 QT: 331 QTc: 435 Interpretive Statements SINUS TACHYCARDIA LOW QRS VOLTAGE IN PRECORDIAL LEADS [QRS DEFLECTION < 1.0 mV IN CHEST LEADS] POSSIBLE RIGHT VENTRICULAR CONDUCTION DELAY [RSR (QR) IN V1/V2] POOR R-WAVE PROGRESSION ABNORMAL RHYTHM ECG NO PREVIOUS ECG AVAILABLE FOR COMPARISON Electronically Signed On 01-13-2023 19:57:53 CDT by Cassidy Talley M.D.
--- NOTE | 2023-01-13 14:37 | ED.RECABL ---
HPI - Recheck/Abnormal Lab/Rx General Chief Complaint: Recheck/Abnormal Lab/Rx <Sol Santo PA-C - Last Filed: 01/13/23 17:49> Stated Complaint: post-op fever <Sol Santo PA-C - Last Filed: 01/13/23 17:49> Time Seen by Provider: 01/13/23 14:29 <Sol Santo PA-C - Last Filed: 01/13/23 17:49> History of Present Illness HPI narrative: Patient is a 42-year-old female here via EMS for evaluation of lower abdominal pain, nausea, vomiting and fever over the past day. She has been unable to keep down any food or fluid, she reports a fever of 101 at home, severe pelvic pain. She received Zofran and 75 of fentanyl in route and is still having chills. Patient is status post total hysterectomy 3 days ago done for uterine fibroids, ovarian cyst and endometriosis. This was done by Dr. Andrew Boland, surgical procedure was complicated by finding a mass in the right adnexa suspicious for CA; biopsy was taken and it was not able to be resected. <Sol Santo PA-C - Last Filed: 01/13/23 17:49> Related Data Home Medications: Home Medications Medication Instructions Recorded Confirmed albuterol sulfate 90 mcg/actuation 2 puff inhalation PRN PRN SOB 12/30/22 12/30/22 aerosol inhaler binimetinib 15 mg tablet (Mektovi) 15 mg PO BID 12/30/22 12/30/22 budesonide-formoterol HFA 160 2 puff inhalation DAILY 12/30/22 12/30/22 mcg-4.5 mcg/actuation aerosol inhaler (Symbicort) cholecalciferol (vitamin D3) 125 5,000 unit PO WEEKLY 12/30/22 12/30/22 mcg (5,000 unit) tablet (Vitamin D3) docusate sodium 100 mg capsule 100 mg PO BID 12/30/22 12/30/22 (Colace) encorafenib 75 mg capsule 75 mg PO DAILY 12/30/22 12/30/22 (Braftovi) furosemide 40 mg tablet (Lasix) 40 mg PO DAILY PRN FLUID RETENTION 12/30/22 12/30/22 jjwpee-[id number] 1 cap PO DAILY 12/30/22 12/30/22 24,000-76,000-120,000 unit capsule,delayed rel (Creon) lorazepam 0.5 mg tablet (Ativan) 0.5 mg PO HS PRN Anxiety 12/30/22 12/30/22 multivitamin 1 tablet PO DAILY 12/30/22 12/30/22 olaparib 150 mg tablet (Lynparza) 150 mg PO BID 12/30/22 12/30/22 ondansetron HCl 4 mg tablet 4 mg PO Q6H PRN Nausea 12/30/22 12/30/22 oxycodone 5 mg tablet 5 mg PO PRN PRN Pain 12/30/22 12/30/22 prochlorperazine maleate 10 mg 10 mg PO Q6H PRN Nausea 12/30/22 12/30/22 tablet (Compazine) <LAKE Edwards Last Filed: 01/13/23 17:49> Allergies/Adverse Reactions: Allergies Allergy/AdvReac Type Severity Reaction Status Date / Time adhesive tape Allergy Severe Blister Verified 01/13/23 14:38 CEFADROXIL HYDRATE Allergy Mild Rash Uncoded 01/13/23 14:38 <LAKE Edwards Last Filed: 01/13/23 17:49> Review of Systems Review of Systems: Gen.: Reports fever Eyes: Denies eye pain or visual change ENT: Denies congestion Respiratory: Denies shortness of breath or cough CV: Denies chest pain or palpitations GI: Denies abdominal pain nausea, emesis or diarrhea reports pelvic pain. Denies burning, urgency, frequency or hematuria Musculoskeletal: Denies back pain or muscle pain Neuro: Denies numbness, tingling, weakness or focal weakness Skin: Denies rash Except as documented, all other systems reviewed and negative <LAKE Edwards Last Filed: 01/13/23 17:49> [facility] Past Medical History Medical History: Medical History Chronic pain Fibroid uterus Overweight (BMI 25.0-29.9) Smoker <LAKE Edwards Last Filed: 01/13/23 17:49> Social History Social History: Social History Years smoked: 26 Smoking status: Current every day smoker Tobacco type: cigarettes and e-cigarettes/vaping Additional smoking assessment comments: PT IS CURRENTLY USING NICOTINE VAPE Substance use type: marijuana Other substance usage details: INGESTS CANNIBAS OILS FOR PAIN CONTROL Living arrangements: with
[2023-01-13 15:48] LABS: Estimated CRCL calculation 178 ml/min; Estimated Glomerular Filt Rate > 60
[2023-01-13 15:56] LABS: Basophils Percent Auto 0.2 % (0.2-1.2); Eosinophils Absolute Auto 0.2 K/mm3 (0-0.3); Eosinophils Percent Auto 1.9 % (0-4.4); Hematocrit 27.9 % (37.0-47.0); Hemoglobin 9.1 g/dL (12.0-15.0); Immature Granulocyte Absolute 0.09 K/mm3 (0.00-0.031); Immature Granulocyte Percent A 0.7 % (0-0.5); Lymphocytes Absolute Auto 0.81 K/mm3 (0.9-3.2); Lymphocytes Percent Auto 6.5 % (18.3-44.2); Mean Corpuscular HGB Conc 32.6 g/dl (32-36); Mean Corpuscular Hemoglobin 33.1 pg (26-34); Mean Corpuscular Volume 101.5 fl (80-100); Mean Platelet Volume 9.2 fl (7.4-10.4); Monocytes Absolute Auto 0.8 K/mm3 (0.1-0.6); Monocytes Percent Auto 6.2 % (2.6-8.5); Neutrophils Absolute Auto 10.6 K/mm3 (1.3-6.7); Neutrophils Percent Auto 84.5 % (45.5-73.1); Platelet Count Result 491 k/mm3 (150-375); Red Blood Count 2.75 M/mm3 (4.2-5.4); Red Cell Distribution Width 13.4 % (11.5-14.5); White Blood Count 12.5 K/mm3 (4.5-10.0)
[2023-01-13] MEDS: ONDANSETRON INJ 4 MG/2 ML VIAL IV PUSH ×2 (16:02→20:20)
[2023-01-13] MEDS: MORPHINE SULFATE (*CRX) 4 MG/ML INJ IV PUSH (16:03)
[2023-01-13 16:10] LABS: Alanine Aminotransferase 19 U/L (6-35); Albumin Level 3.2 g/dL (3.5-5.1); Alkaline Phosphatase 49 U/L (38-126); Anion Gap 3 mmol/L (8-16); Aspartate Amino Transferase 24 U/L (14-36); Bilirubin,Total 0.7 mg/dL (0.2-1.3); Blood Urea Nitrogen 7 mg/dL (7-17); Calcium 7.9 mg/dL (8.4-10.2); Carbon Dioxide 32 mmol/L (22-30); Chloride 100 mmol/L (98-107); Estimated CRCL calculation 178 ml/min; Estimated Glomerular Filt Rate > 60; Glucose 102 mg/dL (65-110); Lipase 13 U/L (23-300); Sodium 135 mmol/L (137-145)
[2023-01-13 16:23] VITALS: BP 96/51; PULSE 101; RESP 18; O2SAT 98
[2023-01-13] MEDS: SODIUM CHLORIDE 0.9% IV 1,000 ML 999 ML IV CONT (16:34)
[2023-01-13] MEDS: POTASSIUM CHLORIDE 20 MEQ ER TABLET 40 MEQ PO (18:02)
[2023-01-13] MEDS: PIPERACILLN/TAZ 3.375GM/NS50ML 3.375 GM/50 ML BAG IVPB (18:02)
[2023-01-13 18:03] VITALS: BP 100/47; PULSE 87; RESP 18; O2SAT 99
[2023-01-13] MEDS: HYDROcodone/acetaminophen (*CRX) 5-325 MG TABLET 1 TAB PO (18:50)
[2023-01-13 18:54] LABS: Reflex Lactic Acid Yes or No Add Lactic
[2023-01-13 19:30] VITALS: BP 102/50; PULSE 92; RESP 14; TEMP 37.1; O2SAT 97
[2023-01-13 20:11] VITALS: BP 102/50
--- NOTE | 2023-01-13 21:09 | ADMGEN ---
This patient, Hien Soriano, was admitted to [facility] Room 302-01. Patient/family oriented to hospital policies and general routines including ID bracelet, bed and alarms, visiting hours, pain management, procedures, bathroom and other care routines, personal items, smoking policy, room service/diet, and visiting hours. Information on how to activate the Rapid Response Team has been discussed. Patient/Family are encouraged to report perceived risks to care and to ask questions if they do not understand what they are told or what they should do.
[2023-01-13 21:39] VITALS: BMI 23.6
[2023-01-13 21:41] VITALS: BP 102/50; PULSE 92; RESP 14; TEMP 37.1; O2SAT 97
[2023-01-14] MEDS: ONDANSETRON INJ 4 MG/2 ML VIAL IV PUSH ×6 (00:09→22:54)
[2023-01-14] MEDS: PIPERACILLN/TAZ 3.375GM/NS50ML 3.375 GM/50 ML BAG IVPB ×5 (00:09→22:54)
[2023-01-14] MEDS: HYDROcodone/acetaminophen (*CRX) 5-325 MG TABLET 1 TAB PO ×5 (00:09→22:54)
[2023-01-14 05:41] VITALS: BP 100/42; PULSE 76; RESP 14; TEMP 36.7; O2SAT 100
[2023-01-14 05:52] LABS: Basophils Percent Auto 0.4 % (0.2-1.2); Eosinophils Absolute Auto 0.7 K/mm3 (0-0.3); Eosinophils Percent Auto 7.9 % (0-4.4); Hematocrit 23.1 % (37.0-47.0); Hemoglobin 7.5 g/dL (12.0-15.0); Immature Granulocyte Absolute 0.05 K/mm3 (0.00-0.031); Immature Granulocyte Percent A 0.6 % (0-0.5); Lymphocytes Absolute Auto 1.31 K/mm3 (0.9-3.2); Lymphocytes Percent Auto 15.7 % (18.3-44.2); Mean Corpuscular HGB Conc 32.5 g/dl (32-36); Mean Corpuscular Hemoglobin 33.3 pg (26-34); Mean Corpuscular Volume 102.7 fl (80-100); Mean Platelet Volume 9.1 fl (7.4-10.4); Monocytes Absolute Auto 0.8 K/mm3 (0.1-0.6); Neutrophils Absolute Auto 5.5 K/mm3 (1.3-6.7); Neutrophils Percent Auto 66.4 % (45.5-73.1); Platelet Count Result 407 k/mm3 (150-375); Red Blood Count 2.25 M/mm3 (4.2-5.4); Red Cell Distribution Width 13.4 % (11.5-14.5); White Blood Count 8.3 K/mm3 (4.5-10.0)
--- NOTE | 2023-01-14 07:19 | PM.IMHP ---
H&P: HPI History of Present Illness Date/Time: 01/14/23 07:19 Chief Complaint: Abdominal pain Narrative: This is a 42-year-old female status post supracervical hysterectomy left salpingo-oophorectomy and biopsy of right ovary whose 3 days with complaining of decreased appetite and fever. She was seen in the ER and a CT scan showed collection of fluid. This was seen earlier under discharge and a CT prior. Her hemoglobin was actually stable this ended been low but it is noted to be there was an abscess versus hematoma I suspect the latter. Her white count was mildly elevated. Her hemoglobin was actually stable. She has been unable to keep much down but feeling better this morning. [facility] Past Medical History Medical History Chronic pain Fibroid uterus Overweight (BMI 25.0-29.9) Smoker Social History Social History Years smoked: 26 Smoking status: Current every day smoker Tobacco type: cigarettes and e-cigarettes/vaping Additional smoking assessment comments: patient uses nicotine inhaler Substance use type: marijuana Other substance usage details: INGESTS CANNIBAS OILS FOR PAIN CONTROL Lack of Transportation: No Lack of Food: Never True Current Housing: I Have Housing Concerned About Future Housing: No Difficulty Paying Gas/Electric Bills: No Difficulty Paying for Meds: No Currently Unemployed: No Education: Associate Degree Difficulty w/ Childcare or Family Care: No Living arrangements: with family Spiritual care concerns: No Meds Home Medications and Allergies Home Medications Medication Instructions Recorded Confirmed Type albuterol sulfate 90 mcg/actuation 2 puff inhalation PRN PRN SOB 12/30/22 01/13/23 History aerosol inhaler binimetinib 15 mg tablet (Mektovi) 15 mg PO BID 12/30/22 01/13/23 History budesonide-formoterol HFA 160 2 puff inhalation DAILY 12/30/22 01/13/23 History mcg-4.5 mcg/actuation aerosol inhaler (Symbicort) cholecalciferol (vitamin D3) 125 5,000 unit PO WEEKLY 12/30/22 01/13/23 History mcg (5,000 unit) tablet (Vitamin D3) docusate sodium 100 mg capsule 100 mg PO BID 12/30/22 01/13/23 History (Colace) encorafenib 75 mg capsule 75 mg PO DAILY 12/30/22 01/13/23 History (Braftovi) furosemide 40 mg tablet (Lasix) 40 mg PO DAILY PRN FLUID RETENTION 12/30/22 01/13/23 History [id number]-[id number]-[id number] 1 cap PO DAILY 12/30/22 01/13/23 History 24,000-76,000-120,000 unit capsule,delayed rel (Creon) lorazepam 0.5 mg tablet (Ativan) 0.5 mg PO HS PRN Anxiety 12/30/22 01/13/23 History multivitamin 1 tablet PO DAILY 12/30/22 01/13/23 History olaparib 150 mg tablet (Lynparza) 150 mg PO BID 12/30/22 01/13/23 History ondansetron HCl 4 mg tablet 4 mg PO Q6H PRN Nausea 12/30/22 01/13/23 History oxycodone 5 mg tablet 5 mg PO PRN PRN Pain 12/30/22 01/13/23 History prochlorperazine maleate 10 mg 10 mg PO Q6H PRN Nausea 12/30/22 01/13/23 History tablet (Compazine) hydrocodone 5 mg-acetaminophen 325 1 tablet PO Q4H PRN pain #20 tabs 01/08/23 01/13/23 Rx mg tablet Allergies Allergy/AdvReac Type Severity Reaction Status Date / Time adhesive tape Allergy Severe Blister Verified 01/13/23 14:38 CEFADROXIL HYDRATE Allergy Mild Rash Uncoded 01/13/23 14:38 Vital Signs Vital Signs - 24 hr 01/13/23 14:29 01/13/23 16:23 01/13/23 18:03 Temperature 97.9 F Pulse Rate 103 H 101 H 87 Respiratory Rate 20 18 18 Blood Pressure 103/81 96/51 L 100/47 L Pulse Oximetry 98 98 99 Oxygen Delivery Room Air 01/13/23 20:11 01/13/23 19:30 01/13/23 21:41 Temperature 98.8 F 98.8 F Pulse Rate 92 92 Respiratory Rate 14 14 Blood Pressure 102/50 L 102/50 L 102/50 L Pulse Oximetry 97 97 Oxygen Delivery 01/14/23 05:41 Temperature 98.1 F Pulse Rate 76 Respiratory Rate 14 Blood Pressure 100/42 L Pulse Oximetry 100 Oxygen Delivery Exam Const: General: cooperative, health
[2023-01-14 11:07] VITALS: BMI 23.6
[2023-01-14] MEDS: LORazepam (*CRX) 0.5 MG TABLET PO (13:15)
[2023-01-14] MEDS: MORPHINE SULFATE (*CRX) 4 MG/ML INJ IV PUSH (13:16)
[2023-01-14 14:00] VITALS: BP 102/70; PULSE 81; RESP 16; TEMP 36.6; O2SAT 100
[2023-01-14 21:38] VITALS: BP 98/46; PULSE 71; RESP 13; TEMP 37.2; O2SAT 97
[2023-01-15] MEDS: ONDANSETRON INJ 4 MG/2 ML VIAL IV PUSH (05:01)
[2023-01-15] MEDS: HYDROcodone/acetaminophen (*CRX) 5-325 MG TABLET 1 TAB PO (05:03)
[2023-01-15] MEDS: PIPERACILLN/TAZ 3.375GM/NS50ML 3.375 GM/50 ML BAG IVPB ×2 (05:04→11:45)
[2023-01-15 06:00] VITALS: BP 112/60; PULSE 74; RESP 14; TEMP 36.1; O2SAT 100
--- NOTE | 2023-01-15 07:08 | PM.GYNPNOP ---
FINAL INSPECTION SUPERVISOR - A/P Postoperative Postoperative status: doing well Postoperative plan: other ( await H&H and CT today.) Time Spent With Patient Time: Total time spent is greater than 50% in coordination of care (as documented) at patient's floor/unit and/or counseling patient: Time with patient: less than 15 minutes FINAL INSPECTION SUPERVISOR- PN:Subj Post-Op Subjective Date/time seen: 01/15/23 07:08 Subjective: patient reports feeling better, patient desires discharge and pain is well controlled Exam Const: General: cooperative, healthy appearing and comfortable Nutritional Appearance: average body habitus Orientation/consciousness: oriented to person, oriented to place and oriented to time HENMT: Head: normal to inspection Resp: Effort & Inspection: normal respiratory effort Cardio: Rate: regular rate Rhythm: regular rhythm Heart sounds: S1 normal heart sound present and S2 normal heart sound present GI: Inspection: normal to inspection and other (Ecchymosis remains unchanged) Auscultation: normal bowel sounds FINAL INSPECTION SUPERVISOR - PN: Obj Data Vital Signs Vital Signs: Vital Signs - 24 hr 01/14/23 14:00 01/14/23 21:38 01/15/23 06:00 Temperature 97.9 F 98.9 F 97.0 F L Pulse Rate 81 71 74 Respiratory Rate 16 13 14 Blood Pressure 102/70 98/46 L 112/60 Pulse Oximetry 100 97 100 Intake/Output Intake/Output: Intake & Output 01/12/23 01/13/23 01/14/23 01/15/23 23:59 23:59 23:59 23:59 Intake Total 2049 990 500 Balance 2049 990 500 Meds/Results Medications: Active Medications Generic Name Dose Route Start Last Admin Trade Name Freq PRN Reason Stop Dose Admin Acetaminophen 650 mg 01/13/23 17:23 Acetaminophen 325 Mg Tablet PO Q4H PRN Mild Pain (1-3) or Fever Hydrocodone Bitart/Acetaminophen 1 tab 01/13/23 17:23 01/15/23 05:03 Hydrocodone/Acetaminophen (*Crx) 5-325 Mg Tablet PO 1 tab Q4H PRN Administration Pain Rated 4-6 Piperacillin/Tazobactam/Dextrose 3.375 gm in 50 mls @ 100 mls/hr 01/14/23 00:00 01/15/23 05:04 Zosyn 3.375 Gm/Ns 50 Ml IVPB 100 mls/hr Q6H MIESHA Administration Lorazepam 0.5 mg 01/14/23 12:51 01/14/23 13:15 Lorazepam (*Crx) 0.5 Mg Tablet PO 0.5 mg Q8HR PRN Administration Anxiety Morphine Sulfate 4 mg 01/13/23 17:23 01/14/23 13:16 Morphine Sulfate (*Crx) 4 Mg/Ml Inj IV PUSH 4 mg Q4H PRN Administration Pain Rated 7-10 Ondansetron HCl 4 mg 01/13/23 17:23 01/15/23 05:01 Ondansetron Inj 4 Mg/2 Ml Vial IV PUSH 4 mg Q4H PRN Administration Nausea Radiology Results: ITS Impressions Abdomen/Pelvis CT 01/13/23 16:23 IMPRESSION: 1. Enlarging peripherally enhancing fluid collection the pelvis which could represent hematoma or abscess in the appropriate clinical setting. In place is difficult to distinguish from multiple enhancing intracranial masses suspicious for metastatic disease which includes an 8.6 cm mass in the right lower quadrant. 2. Postoperative change of recent hysterectomy. Labs 01/14/23 05:36 01/13/23 15:44
[2023-01-15 07:41] LABS: Hematocrit 23.9 % (37.0-47.0); Hemoglobin 7.7 g/dL (12.0-15.0); Mean Corpuscular HGB Conc 32.2 g/dl (32-36); Mean Corpuscular Hemoglobin 33.3 pg (26-34); Mean Corpuscular Volume 103.5 fl (80-100); Mean Platelet Volume 8.8 fl (7.4-10.4); Platelet Count Result 435 k/mm3 (150-375); Red Blood Count 2.31 M/mm3 (4.2-5.4); Red Cell Distribution Width 13.5 % (11.5-14.5); White Blood Count 10.1 K/mm3 (4.5-10.0)
[2023-01-15 08:13] LABS: Alanine Aminotransferase 15 U/L (6-35); Albumin Level 2.8 g/dL (3.5-5.1); Alkaline Phosphatase 45 U/L (38-126); Anion Gap 5 mmol/L (8-16); Aspartate Amino Transferase 29 U/L (14-36); Bilirubin,Total 0.7 mg/dL (0.2-1.3); Blood Urea Nitrogen 4 mg/dL (7-17); Calcium 7.6 mg/dL (8.4-10.2); Carbon Dioxide 33 mmol/L (22-30); Chloride 99 mmol/L (98-107); Estimated CRCL calculation 119 ml/min; Estimated Glomerular Filt Rate > 60; Glucose 87 mg/dL (65-110); Potassium 2.7 mmol/L (3.4-5.0); Sodium 137 mmol/L (137-145)
[2023-01-15] MEDS: LORazepam (*CRX) 0.5 MG TABLET PO (08:16)
[2023-01-15] MEDS: POTASSIUM CHLORIDE 20 MEQ ER TABLET 40 MEQ PO (09:15)
[2023-01-15] MEDS: HYDROcodone/acetaminophen (*CRX) 10-325 MG TABLET 1 TAB PO (09:15)
--- NOTE | 2023-01-15 10:49 | PM.GYNPNOP ---
MEDICAL ASSISTANT - A/P Time Spent With Patient Time: Total time spent is greater than 50% in coordination of care (as documented) at patient's floor/unit and/or counseling patient: Time with patient: less than 15 minutes MEDICAL ASSISTANT- PN:Jey Post-Op Subjective Date/time seen: 01/15/23 10:49 Interval history: the patient has remained afebrile. CT shows stability of the collections of fluid. And hemoglobin has remained stable with 7.7 today. Will discharge home on oral Keflex x7 days and see her back in 1 week MEDICAL ASSISTANT - PN: Obj Data Vital Signs Vital Signs: Vital Signs - 24 hr 01/14/23 14:00 01/14/23 21:38 01/15/23 06:00 Temperature 97.9 F 98.9 F 97.0 F L Pulse Rate 81 71 74 Respiratory Rate 16 13 14 Blood Pressure 102/70 98/46 L 112/60 Pulse Oximetry 100 97 100 Intake/Output Intake/Output: Intake & Output 01/12/23 01/13/23 01/14/23 01/15/23 23:59 23:59 23:59 23:59 Intake Total 2049 990 620 Balance 2049 990 620 Meds/Results Medications: Active Medications Generic Name Dose Route Start Last Admin Trade Name Freq PRN Reason Stop Dose Admin Acetaminophen 650 mg 01/13/23 17:23 Acetaminophen 325 Mg Tablet PO Q4H PRN Mild Pain (1-3) or Fever Hydrocodone Bitart/Acetaminophen 1 tab 01/13/23 17:23 01/15/23 05:03 Hydrocodone/Acetaminophen (*Crx) 5-325 Mg Tablet PO 1 tab Q4H PRN Administration Pain Rated 4-6 Hydrocodone Bitart/Acetaminophen 1 tab 01/15/23 08:30 01/15/23 09:15 Hydrocodone/Acetaminophen (*Crx) 10-325 Mg Tablet PO 1 tab Q4H PRN Administration Pain Rated 7-10 Piperacillin/Tazobactam/Dextrose 3.375 gm in 50 mls @ 100 mls/hr 01/14/23 00:00 01/15/23 05:04 Zosyn 3.375 Gm/Ns 50 Ml IVPB 100 mls/hr Q6H MIESHA Administration Lorazepam 0.5 mg 01/14/23 12:51 01/15/23 08:16 Lorazepam (*Crx) 0.5 Mg Tablet PO 0.5 mg Q8HR PRN Administration Anxiety Morphine Sulfate 4 mg 01/13/23 17:23 01/14/23 13:16 Morphine Sulfate (*Crx) 4 Mg/Ml Inj IV PUSH 4 mg Q4H PRN Administration Breakthrough Pain Ondansetron HCl 4 mg 01/13/23 17:23 01/15/23 05:01 Ondansetron Inj 4 Mg/2 Ml Vial IV PUSH 4 mg Q4H PRN Administration Nausea Radiology Results: ITS Impressions Abdomen/Pelvis CT 01/15/23 08:57 IMPRESSION: 1. No interval change in a couple loculated fluid collections in the pelvis which represent postoperative hematomas or abscesses in the appropriate clinical setting. 2. Multiple intraperitoneal masses which have remained stable suspicious for metastatic disease. Labs 01/15/23 07:33 01/15/23 07:20 Labs: Laboratory Results - last 24 hr 01/15/23 01/15/23 07:20 07:33 WBC 10.1 H RBC 2.31 L Hgb 7.7 L Hct 23.9 L MCV 103.5 H MCH 33.3 MCHC 32.2 RDW 13.5 Plt Count 435 H MPV 8.8 Sodium 137 Potassium 2.7 L* Chloride 99 Carbon Dioxide 33 H Anion Gap 5 L BUN 4 L Creatinine 0.50 L Estim Creat Clear Calc 119 Estimated GFR > 60 Glucose 87 Calcium 7.6 L Total Bilirubin 0.7 AST 29 ALT 15 Alkaline Phosphatase 45 Total Protein 6.0 L Albumin 2.8 L
--- NOTE | 2023-01-15 10:50 | PM.DS ---
DS: Admitting Diagnosis Discharge Date 01/15/2023 Admitting Diagnosis postoperative abdominal hematomas / possible postop infection DS: Discharge Diagnosis Discharge Diagnosis (1) Postoperative hematoma: Status: Acute DS: Summary Hospital Course Reason for hospitalization: patient was admitted with abdominal pain postop following hysterectomy left salpingo-oophorectomy in left salpingectomy. Pathology had shown stage IV melanoma for which the patient was already being treated. Scan showed fluid levels consistent with a hematoma versus abscess. Her white count was mildly elevated. She was placed on antibiotics Hospital Course: as noted she was placed on antibiotics and over 36hours she remained afebrile. Her white count normalized. Her CT showed stability and the hemoglobin remained stable. She will be discharged home on Keflex twice a day for 10 days see her back in a week and recheck a blood count that. Time Spent with Patient Time attestation: Total time spent providing and/or coordinating discharge services: Exam Const: General: cooperative, healthy appearing and comfortable Nutritional Appearance: average body habitus Orientation/consciousness: oriented to person, oriented to place and oriented to time HENMT: Head: normal to inspection Resp: Effort & Inspection: normal respiratory effort Cardio: Rate: regular rate Rhythm: regular rhythm Heart sounds: S1 normal heart sound present and S2 normal heart sound present GI: Inspection: normal to inspection and other ( Incisions are clean and dry. Ecchymosis remained stable) DS: Data Data Completed and Pending Labs on day of discharge: Labs from last 24 hours 01/15/23 01/15/23 07:33 07:20 WBC 10.1 H RBC 2.31 L Hgb 7.7 L Hct 23.9 L MCV 103.5 H MCH 33.3 MCHC 32.2 RDW 13.5 Plt Count 435 H MPV 8.8 Sodium 137 Potassium 2.7 L* Chloride 99 Carbon Dioxide 33 H Anion Gap 5 L BUN 4 L Creatinine 0.50 L Estim Creat Clear Calc 119 Estimated GFR > 60 Glucose 87 Calcium 7.6 L Total Bilirubin 0.7 AST 29 ALT 15 Alkaline Phosphatase 45 Total Protein 6.0 L Albumin 2.8 L Preliminary micro results at discharge 01/13/23 19:16 Blood Culture - Preliminary Blood 01/13/23 15:30 Blood Culture - Preliminary Blood Discharge Plan Discharge Attending physician on discharge: Paul William Consulting providers: Sol Santo Discharging Clinician: Paul William Patient Disposition: Home, Self-Care Activity: may shower and pelvic rest Diet: heart healthy Wound Care Instructions: follow printed instructions Patient Instructions: Antibiotic Form, How to Stop Smoking (DC) Stand Alone Forms: General Discharge Information Follow-up/Referrals: Pual William MD [Physician] - Discharge Medications: New hydrocodone-acetaminophen 10-325 mg tablet 1 tablet PO Q4H PRN (Reason: pain) Qty: 30 0RF cephalexin 500 mg tablet 500 mg PO Q12H Qty: 20 0RF Continued oxycodone 5 mg tablet 5 mg PO PRN PRN (Reason: Pain) Rx Instructions: EVERY 4 HRS, PRN docusate sodium [Colace] 100 mg Capsule 100 mg PO BID prochlorperazine maleate [Compazine] 10 mg Tablet 10 mg PO Q6H PRN (Reason: Nausea) ondansetron HCl [Zofran] 4 mg Tablet 4 mg PO Q6H PRN (Reason: Nausea) budesonide-formoterol [Symbicort] 160-4.5 mcg/actuation HFA aerosol inhaler 2 puff INHALATION DAILY Creon 24,000-76,000 -120,000 unit capsule,delayed release(DR/EC) 1 cap PO DAILY cholecalciferol (vitamin D3) [Vitamin D3] 125 mcg (5,000 unit) Tablet 5,000 unit PO WEEKLY albuterol sulfate 90 mcg/actuation HFA aerosol inhaler 2 puff INHALATION PRN PRN (Reason: SOB) furosemide [Lasix] 40 mg Tablet 40 mg PO DAILY PRN (Reason: FLUID RETENTION) lorazepam [Ativan] 0.5 mg Tablet 0.5 mg PO HS PRN (Reason: Anxiety) mu
--- NOTE | 2023-01-15 13:11 | PC.NURSE ---
Pt had multiple narcotic medications on discharge. Explained that only one dose of norco 10/325 would be given, and that is for a pain scale for 7-10. The second dose is a duplicate and voided. The norco 5/325 continued from home is for pain 4-6. Her oxycodone continued from home should not be used with her hydrocodone. We discussed safety, respiratory depression, and pain control. Advised her best situation is to use norco 5/325 for 4-6, norco 10/325 for 7-10, and avoid oxycodone use at this time, but if it is necessary, that she should not take it within 4 hours of any other narcotic use. I marked her discharge papers appropriately and had discharge door operator review them. Pt and voice understanding and know to call MD if they have any questions.
== END 2023-01-15 12:30 | disposition home or self-care (01) ==
LOC: ANHED 17:33 → ANH3MEDSUR 18:53
PROVIDERS: Admitting Provider Obstetrics & Gynecology; Emergency Provider Physician Assistant; Visit Provider Obstetrics & Gynecology
DX: C78.6 Secondary malignant neoplasm of retroperitoneum and peritoneum (principal); G89.18 Other acute postprocedural pain; Z90.710 Acquired absence of both cervix and uterus; K91.871 Postprocedural hematoma of a digestive system organ or structure following other procedure; R63.0 Anorexia; E66.3 Overweight; Z68.23 Body mass index [BMI] 23.0-23.9, adult; D72.829 Elevated white blood cell count, unspecified; E87.6 Hypokalemia; R94.31 Abnormal electrocardiogram [ECG] [EKG]; F17.290 Nicotine dependence, other tobacco product, uncomplicated; F12.90 Cannabis use, unspecified, uncomplicated; Z79.51 Long term (current) use of inhaled steroids; Z79.891 Long term (current) use of opiate analgesic; Z79.899 Other long term (current) drug therapy
CPT/HCPCS: 36415; 74176; 74177; 80053; 83605; 83690; 83735; 85025; 85027; 86850; 86900; 86901; 87040; 93005; 96361; 96365; 96366; 96375; 96376; 99285; A9270; G0378; G0379; J2270; J2405; J2543; J7030; Q9967

== ENCOUNTER 2023-02-01 21:19 | Inpatient (IN) | payer OTHER, SELFPAY ==
--- NOTE | ~2023-02-01 | CT_ITS ---
EXAMINATION: CT abdomen pelvis w con DATE: 02/01/2023 22:20 INDICATION: Abdominal pain. Nausea and vomiting. TECHNIQUE: Computed tomography (CT) of the abdomen and pelvis was performed with 100 mL Omnipaque 350 intravenous contrast. Automated exposure control and iterative reconstruction technique were employe d. The dose-length product was 835.25 mGy-cm. COMPARISON: CT abdomen and pelvis 01/15/2023, 01/13/23 FINDINGS: The visualized portions of the lung bases demonstrate mild atelectasis. There is a small le ft pleural effusion. The heart size is normal. No pericardial effusion. There is a small sliding hiat al hernia. There are changes of left hepatectomy. The spleen, pancreas, adrenal glands, and kidneys a re normal. There are no dilated loops of bowel. The appendix is not visualized. There is a large volu me of ascites. There is extensive bulky peritoneal carcinomatosis. For example, a 9.5 cm mass in the left anterior peritoneum measured 7.5 cm on 01/13/2023. There are multiple masses in the anterior abdo ayala wall, consistent metastatic disease, likely spread of peritoneal carcinomatosis through surgica l sites. Body wall edema is noted. No definite lymphadenopathy. There is mild thoracic and lumbar spo ndylosis. IMPRESSION: 1. Worsened large volume of ascites. 2. Worsened extensive bulky peritoneal carcinomatosis. 3. Small left pleural effusion. Reviewed, dictated and finalized at location E.
[2023-02-01 21:38] LABS: Basophils Percent Auto 0.3 % (0.2-1.2); Eosinophils Absolute Auto 0.3 K/mm3 (0-0.3); Eosinophils Percent Auto 3.5 % (0-4.4); Hemoglobin 9.3 g/dL (12.0-15.0); Immature Granulocyte Absolute 0.03 K/mm3 (0.00-0.031); Immature Granulocyte Percent A 0.4 % (0-0.5); Lymphocytes Absolute Auto 0.89 K/mm3 (0.9-3.2); Lymphocytes Percent Auto 11.4 % (18.3-44.2); Mean Corpuscular HGB Conc 32.1 g/dl (32-36); Mean Corpuscular Volume 102.8 fl (80-100); Mean Platelet Volume 8.8 fl (7.4-10.4); Monocytes Absolute Auto 0.7 K/mm3 (0.1-0.6); Monocytes Percent Auto 9.5 % (2.6-8.5); Neutrophils Absolute Auto 5.9 K/mm3 (1.3-6.7); Neutrophils Percent Auto 74.9 % (45.5-73.1); Platelet Count Result 463 k/mm3 (150-375); Red Blood Count 2.82 M/mm3 (4.2-5.4); Red Cell Distribution Width 14.9 % (11.5-14.5); White Blood Count 7.8 K/mm3 (4.5-10.0)
[2023-02-01 21:49] LABS: Alanine Aminotransferase 13 U/L (6-35); Albumin Level 2.9 g/dL (3.5-5.1); Alkaline Phosphatase 47 U/L (38-126); Anion Gap 1 mmol/L (8-16); Aspartate Amino Transferase 25 U/L (14-36); Bilirubin,Total 0.5 mg/dL (0.2-1.3); Blood Urea Nitrogen 6 mg/dL (7-17); Calcium 7.9 mg/dL (8.4-10.2); Carbon Dioxide 33 mmol/L (22-30); Chloride 99 mmol/L (98-107); Estimated CRCL calculation 119 ml/min; Estimated Glomerular Filt Rate > 60; Glucose 94 mg/dL (65-110); Potassium 3.2 mmol/L (3.4-5.0); Sodium 133 mmol/L (137-145)
[2023-02-01 22:01] LABS: Lipase < 10 U/L (23-300)
[2023-02-01 22:05] LABS: Appearance Urine Cloudy (Clear); Color Urine Dark Yellow (Yellow); Protein Urine 1+ mg/dL (Negative); Specific Grav Ur 1.024 (1.001-1.035)
[2023-02-01 22:06] LABS: Bacteria Urine None Seen /hpf; Bilirubin Urine 1+ (Negative); Blood Urine Negative (Negative); Glucose Urine UA Negative (Negative); Hyaline Casts Urine Present /lpf; Ketones Urine 1+ mg/dL (Negative); Leukocyte Esterase Ur Negative LEU/UL (Negative); Nitrate Urine Negative (Negative); Squamous Epithelial Cell Urine Few /hpf (Few); WBC Urine 0-5 /hpf
[2023-02-01 22:07] LABS: Add Urine Microscopic? YES
[2023-02-01] MEDS: MORPHINE SULFATE (*CRX) 4 MG/ML INJ IV PUSH (22:25)
[2023-02-01] MEDS: ONDANSETRON INJ 4 MG/2 ML VIAL IV PUSH (22:25)
[2023-02-01] MEDS: SODIUM CHLORIDE 0.9% IV 1,000 ML 999 ML IV CONT (22:25)
--- NOTE | 2023-02-01 23:12 | ED.GENADULT ---
HPI - General Adult General Chief complaint: Abdominal Pain Stated complaint: ABD PAIN; N/V Time Seen by Provider: 02/01/23 21:45 History of Present Illness HPI narrative: Patient 42-year-old female who presents the emergency department with chief complaint of nausea vomiting and abdominal pain. Patient reports she has history of metastatic melanoma and recently had surgery by Dr. Andrew Boland the patient reports that she was admitted for pain control and now reports that she is continuing to have pain and nausea not able to keep her pain medicines down. Related Data Home Medications Medication Instructions Recorded Confirmed albuterol sulfate 90 mcg/actuation 2 puff inhalation PRN PRN SOB 12/30/22 01/13/23 aerosol inhaler binimetinib 15 mg tablet (Mektovi) 15 mg PO BID 12/30/22 01/13/23 budesonide-formoterol HFA 160 2 puff inhalation DAILY 12/30/22 01/13/23 mcg-4.5 mcg/actuation aerosol inhaler (Symbicort) cholecalciferol (vitamin D3) 125 5,000 unit PO WEEKLY 12/30/22 01/13/23 mcg (5,000 unit) tablet (Vitamin D3) docusate sodium 100 mg capsule 100 mg PO BID 12/30/22 01/13/23 (Colace) encorafenib 75 mg capsule 75 mg PO DAILY 12/30/22 01/13/23 (Braftovi) furosemide 40 mg tablet (Lasix) 40 mg PO DAILY PRN FLUID RETENTION 12/30/22 01/13/23 fbrkwm-msftvopc-fajlipl 1 cap PO DAILY 12/30/22 01/13/23 24,000-76,000-120,000 unit capsule,delayed rel (Creon) lorazepam 0.5 mg tablet (Ativan) 0.5 mg PO HS PRN Anxiety 12/30/22 01/13/23 multivitamin 1 tablet PO DAILY 12/30/22 01/13/23 olaparib 150 mg tablet (Lynparza) 150 mg PO BID 12/30/22 01/13/23 ondansetron HCl 4 mg tablet 4 mg PO Q6H PRN Nausea 12/30/22 01/13/23 oxycodone 5 mg tablet 5 mg PO PRN PRN Pain 12/30/22 01/13/23 prochlorperazine maleate 10 mg 10 mg PO Q6H PRN Nausea 12/30/22 01/13/23 tablet (Compazine) Allergies Allergy/AdvReac Type Severity Reaction Status Date / Time adhesive tape Allergy Severe Blister Verified 02/01/23 21:31 CEFADROXIL HYDRATE Allergy Mild Rash Uncoded 01/13/23 14:38 Review of Systems Review of Systems: A 10 system review of systems was completed on the patient and is negative except for what is stated in the HPI. Nursing and ancillary documentation was reviewed. [facility] Past Medical History Medical History Chronic pain Fibroid uterus Overweight (BMI 25.0-29.9) Smoker Social History Social History Years smoked: 26 Smoking status: Current every day smoker Tobacco type: cigarettes and e-cigarettes/vaping Additional smoking assessment comments: patient uses nicotine inhaler Substance use type: marijuana Other substance usage details: INGESTS CANNIBAS OILS FOR PAIN CONTROL Lack of Transportation: No Lack of Food: Never True Current Housing: I Have Housing Concerned About Future Housing: No Difficulty Paying Gas/Electric Bills: No Difficulty Paying for Meds: No Currently Unemployed: No Education: Associate Degree Difficulty w/ Childcare or Family Care: No Living arrangements: with family Spiritual care concerns: No Exam Narrative: GENERAL: Ill l-appearing, thin appearing with distended abdomen, and in no acute distress. HEAD: Normocephalic, atraumatic. EYES: PERRLA and EOMI. ENT: Nares clear, no rhinorrhea or epistaxis. Mucous membranes moist. NECK: Supple. CHEST: Clear to auscultation. No respiratory distress. HEART: Regular rate and rhythm. No murmur heard. Normal peripheral pulses. ABDOMEN: Soft, diffuse mild tenderness, distended with appreciable ascites, normal active bowel sounds. EXTREMITIES: Normal range of motion. No edema. SKIN: Warm, dry, no rash. NEURO: No focal deficits. Alert and oriented x3. PSYCH: Normal mood and affect. Medical Decision Making MDM Narrative Medical decision making narrative: Differential diagnosis includes dehydration, metastatic melanoma, ascites, Underwent lab
--- NOTE | 2023-02-01 23:41 | PM.IMHP ---
H&P: HPI History of Present Illness Date/Time: 02/01/23 23:41 Chief Complaint: n/v Narrative: This is a 42-year-old female with past medical history significant for metastatic melanoma, peritoneal carcinomatosis, patient is status post hysterectomy, comes to the emergency room due to intractable nausea and vomiting unable to keep anything down, abdominal pain, patient had laparoscopic procedure performed ,robotic supracervical hysterectomy with left salpingo-oophorectomy and right salpingectomy.? Biopsy of right adnexal, on 01/08/2023. patient complains of abdominal pain, abdominal distension, around the puncture sites, has had hot flashes. EXAMINATION: CT abdomen pelvis w con DATE: 02/01/2023 22:20 INDICATION: Abdominal pain. Nausea and vomiting. TECHNIQUE: Computed tomography (CT) of the abdomen and pelvis was performed with 100 mL Omnipaque 350 intravenous contrast. Automated exposure control and iterative reconstruction technique were employed. The dose-length product was 835.25 mGy-cm. COMPARISON: CT abdomen and pelvis 01/15/2023, 01/13/23 FINDINGS: The visualized portions of the lung bases demonstrate mild atelectasis. There is a small left pleural effusion. The heart size is normal. No pericardial effusion. There is a small sliding hiatal hernia. There are changes of left hepatectomy. The spleen, pancreas, adrenal glands, and kidneys are normal. There are no dilated loops of bowel. The appendix is not visualized. There is a large volume of ascites. There is extensive bulky peritoneal carcinomatosis. For example, a 9.5 cm mass in the left anterior peritoneum measured 7.5 cm on 01/13/2023. There are multiple masses in the anterior abdominal wall, consistent metastatic disease, likely spread of peritoneal carcinomatosis through surgical sites. Body wall edema is noted. No definite lymphadenopathy. There is mild thoracic and lumbar spondylosis. IMPRESSION: 1. Worsened large volume of ascites. 2. Worsened extensive bulky peritoneal carcinomatosis. 3. Small left pleural effusion. Review of Systems Review of Systems: , nausea, vomiting, abdominal pain, abdominal distention Constitutional: Constitutional: Reports fatigue, Denies night sweats, Reports poor appetite, Reports weakness and Reports weight loss Eyes: Eyes: Denies change in vision ENT: Denies dysphagia and Denies odynophagia Cardiovascular: Cardiovascular: Denies chest pain, Denies leg edema and Denies palpitations Respiratory: Respiratory: Denies cough and Denies dyspnea Gastrointestinal: Gastrointestinal: Reports abdominal pain, Denies dyspepsia, Denies heartburn, Reports nausea and Reports vomiting Genitourinary: Genitourinary: Denies dysuria Musculoskeletal: Musculoskeletal: Denies back pain and Denies arthralgias Integumentary/Breasts: Skin/Breast: Denies rash Neurologic: Denies focal weakness and Denies Sensory deficit (Neuro) Psychiatric: Psychiatric: Reports no additional psychiatric complaints and Reports as per HPI Endocrine: Endocrine: Denies cold intolerance, Denies heat intolerance, Denies polyphagia, Denies polydipsia, Denies palpitations and Reports other ( hot flashes) Hematologic/Lymphatic: Hematologic/Lymphatic: Reports no additional hematologic/lymphatic complaints and Reports as per HPI Allergic/Immunologic: Allergic/Immunologic: Reports no additional allergic/immunologic complaints and Reports as per HPI PMFSH Past Medical History Medical History Chronic pain Fibroid uterus Overweight (BMI 25.0-29.9) Smoker Social History Social History Years smoked: 26 Smoking status: Current every day smoker Tobacco type: cigarettes and e-cigarettes/vaping Additional smoking assessment comments: patient uses nicotine inhaler Substance use type: marijuana Other substance usage details: INGESTS CANNIBAS OILS FOR PAIN CONTROL Lack of Transportation: No Lack of Food: Ne
[2023-02-02] VITALS: BP 120/80; PULSE 95; RESP 19; O2SAT 98
[2023-02-02] MEDS: ONDANSETRON INJ 4 MG/2 ML VIAL IV PUSH ×3 (01:11→15:56)
[2023-02-02] MEDS: MORPHINE SULFATE (*CRX) 4 MG/ML INJ IV PUSH ×3 (01:43→15:52)
[2023-02-02 01:46] VITALS: BP 121/86; PULSE 95; RESP 19; O2SAT 98
--- NOTE | 2023-02-02 02:18 | ADMGEN ---
This patient, Hien Soriano, was admitted to [facility] Surg Room 303-01. Patient/family oriented to hospital policies and general routines including ID bracelet, bed and alarms, visiting hours, pain management, procedures, bathroom and other care routines, personal items, smoking policy, room service/diet, and visiting hours. Information on how to activate the Rapid Response Team has been discussed. Patient/Family are encouraged to report perceived risks to care and to ask questions if they do not understand what they are told or what they should do.
[2023-02-02] MEDS: SODIUM CHLORIDE 0.9% IV 1,000 ML 125 ML IV CONT (02:23)
[2023-02-02 02:29] VITALS: BP 112/61; PULSE 91; RESP 18; TEMP 36.7; O2SAT 98; BMI 27.1
[2023-02-02] MEDS: HYDROmorphone HCL INJ (*CRX) 1 MG/ML SYR IV PUSH (05:30)
[2023-02-02 06:00] VITALS: BP 97/51; PULSE 74; RESP 17; TEMP 36.6; O2SAT 99
[2023-02-02 06:51] LABS: Basophils Percent Auto 0.3 % (0.2-1.2); Eosinophils Absolute Auto 0.3 K/mm3 (0-0.3); Eosinophils Percent Auto 4.3 % (0-4.4); Hematocrit 28.7 % (37.0-47.0); Hemoglobin 9.1 g/dL (12.0-15.0); Immature Granulocyte Absolute 0.04 K/mm3 (0.00-0.031); Immature Granulocyte Percent A 0.6 % (0-0.5); Lymphocytes Absolute Auto 1.06 K/mm3 (0.9-3.2); Lymphocytes Percent Auto 15.1 % (18.3-44.2); Mean Corpuscular HGB Conc 31.7 g/dl (32-36); Mean Corpuscular Hemoglobin 33.2 pg (26-34); Mean Corpuscular Volume 104.7 fl (80-100); Monocytes Absolute Auto 0.8 K/mm3 (0.1-0.6); Neutrophils Absolute Auto 4.8 K/mm3 (1.3-6.7); Neutrophils Percent Auto 68.7 % (45.5-73.1); Platelet Count Result 417 k/mm3 (150-375); Red Blood Count 2.74 M/mm3 (4.2-5.4); Red Cell Distribution Width 15.1 % (11.5-14.5)
[2023-02-02 07:07] LABS: Anion Gap 2 mmol/L (8-16); Blood Urea Nitrogen 5 mg/dL (7-17); Calcium 7.4 mg/dL (8.4-10.2); Carbon Dioxide 33 mmol/L (22-30); Chloride 101 mmol/L (98-107); Estimated CRCL calculation 119 ml/min; Estimated Glomerular Filt Rate > 60; Glucose 71 mg/dL (65-110); Potassium 3.1 mmol/L (3.4-5.0); Sodium 136 mmol/L (137-145)
[2023-02-02] MEDS: POTASSIUM CHLORIDE INJ 40 MEQ in SODIUM CHLORIDE 0.9% IV 500 ML 130 MEQ IVPB (09:19)
[2023-02-02] MEDS: ENOXAPARIN 40 MG/0.4 ML SYRINGE SUB-Q (09:20)
[2023-02-02] MEDS: FUROSEMIDE INJ 40 MG/4 ML VIAL IV PUSH (09:20)
[2023-02-02 14:00] VITALS: BP 123/75; PULSE 102; RESP 18; TEMP 36.4; O2SAT 100
--- NOTE | 2023-02-02 14:18 | PM.IMPN ---
Progress Note: A&P Assessment and Plan (1) Generalized abdominal pain: Code(s): R10.84 - Generalized abdominal pain Status: Acute Assessment and Plan: Place in observation Pain Management CT abdomen and pelvis revealing large volume ascites and bulky peritoneal carcinomatosis Patient states that she is starting clinical trial very soon. Zofran IV p.r.n.. Analgesics p.r.n. 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 Has upcoming appointment with oncologist this week. (4) Status post abdominal hysterectomy and salpingo-oophorectomy: Status: Acute Assessment and Plan: Incisions healing well with no significant redness, swelling or drainage around the site. Subjective Date/time seen: 02/02/23 14:18 Interval history: Patient states that she has had ongoing nausea vomiting for several days. She takes Zofran at home as well as pain medications. She has metastatic carcinomatosis. She is scheduled for clinical trial in a couple weeks and has follow-up Oncology this week. I explained her that most of her symptoms are likely due to her cancer. She states that her oncologist would not be pleased with paracentesis due to her starting clinical trial soon and she does not recover from procedures/surgeries very well. She did get started on diuresis due to her ascites but this is not likely to make a huge difference in her fluid status. She is okay to go home as long as she is not having continual symptoms. She understands that most of the symptoms are chronic and that the imaging did not find any acute abnormality. Review of Systems Review of Systems: All systems reviewed & are unremarkable except as noted in HPI and below Exam Narrative: GENERAL: Comfortable, no acute distress HENMT: moist mucous membranes EYES: EOM intact b/l NECK: no lymphadenopathy RESPIRATORY: clear to auscultation CARDIO: RRR GI: Distended, fluid wave present, distant bowel sounds, well-healing incisions from hysterectomy SKIN: no rashes EXTREMITIES: no edema, redness or tenderness Objective Data Vital Signs Vital Signs: Vital Signs - 24 hr 02/02/23 01:46 02/02/23 00:00 02/02/23 02:29 Temperature 98.1 F Pulse Rate 95 95 91 Respiratory Rate 19 19 18 Blood Pressure 121/86 120/80 112/61 Pulse Oximetry 98 98 98 Oxygen Delivery 02/02/23 02:41 02/02/23 06:00 02/02/23 08:00 Temperature 97.9 F Pulse Rate 74 Respiratory Rate 17 Blood Pressure 97/51 L Pulse Oximetry 99 Oxygen Delivery Room Air Room Air Intake/Output Intake/Output: Intake & Output 01/30/23 01/31/23 02/01/23 02/02/23 23:59 23:59 23:59 23:59 Intake Total 1580 Output Total 60 300 Balance -60 1280 Meds/Results Medications: Active Medications Generic Name Dose Route Start Last Admin Trade Name Freq PRN Reason Stop Dose Admin Albuterol 2 puff 02/02/23 07:50 Albuterol Sulfate (*Sp) Aerosol 1 Puff INHALATION PRN PRN Shortness Of Breath Lipase/Protease/Amylase 2 cap 02/02/23 09:00 02/02/23 09:29 Lipase/Amylase/Protease 12,000 Units Cap PO Not Given DAILY MIESHA Docusate Sodium 100 mg 02/02/23 07:50 Docusate Sodium 100 Mg Capsule PO BID PRN Constipation Enoxaparin Sodium 40 mg 02/02/23 09:00 02/02/23 09:20 Enoxaparin 40 Mg/0.4 Ml Syringe SUB-Q 40 mg DAILY MIESHA Administration Furosemide 40 mg 02/02/23 07:50 Furosemide 40 Mg Tablet PO DAILY PRN FLUID RETENTION Furosemide 40 mg 02/02/23 09:00 02/02/23 09:20 Furosemide Inj 40 Mg/4 Ml Vial IV PUSH
--- NOTE | 2023-02-02 16:02 | PM.DS ---
DS: Admitting Diagnosis Discharge Date 02/02/23 Admitting Diagnosis Nausea and vomiting DS: Discharge Diagnosis Discharge Diagnosis (1) Generalized abdominal pain: Code(s): R10.84 - Generalized abdominal pain Status: Acute Assessment and Plan: Place in observation Pain Management CT abdomen and pelvis revealing large volume ascites and bulky peritoneal carcinomatosis Patient states that she is starting clinical trial very soon. Zofran IV p.r.n.. Analgesics p.r.n. 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 Has upcoming appointment with oncologist this week. (4) Status post abdominal hysterectomy and salpingo-oophorectomy: Status: Acute Assessment and Plan: Incisions healing well with no significant redness, swelling or drainage around the site. DS: Summary Hospital Course Hospital Course: This is a 42-year-old female with past medical history significant for metastatic melanoma, peritoneal carcinomatosis, patient is status post hysterectomy, comes to the emergency room due to intractable nausea and vomiting unable to keep anything down,? abdominal pain, patient had laparoscopic procedure performed ,robotic supracervical hysterectomy with left salpingo-oophorectomy and right salpingectomy on 01/08/2023. CT abdomen pelvis showing worsen to large volume ascites, worsened extensive bulky peritoneal carcinomatosis and small left pleural effusion. Patient's labs were essentially normal. She did receive some potassium replacement. No evidence of UTI. She was started on IV fluids and pain control as well as antiemetics. She is scheduled to start in a clinical trial coming up. She has follow-up with Oncology this coming week. Most of her symptoms are likely related to her cancer. She states that her oncologist would not be pleased with paracentesis due to her starting clinical trial soon and she does not recover from procedures/surgeries very well.? She takes Zofran and pain medications at home. She states that she was unable to take a liquid diet and I offered her some toast. She handled this food well. She states that most of her diet is a very bland diet. Due to tolerating diet well and no longer having any vomiting she is okay to discharge with close follow-up with her oncologist and hopes to start clinical trial soon. Time Spent with Patient Time attestation: Total time spent providing and/or coordinating discharge services: Exam Narrative: GENERAL: Comfortable, no acute distress HENMT: moist mucous membranes EYES: EOM intact b/l NECK: no lymphadenopathy RESPIRATORY: clear to auscultation CARDIO: RRR GI: Distended, fluid wave present, distant bowel sounds, well-healing incisions from hysterectomy SKIN: no rashes EXTREMITIES: no edema, redness or tenderness DS: Data Data Completed and Pending Labs on day of discharge: Labs from last 24 hours 02/02/23 02/01/23 02/01/23 05:40 21:43 21:31 WBC 7.0 7.8 RBC 2.74 L 2.82 L Hgb 9.1 L 9.3 L Hct 28.7 L 29.0 L MCV 104.7 H 102.8 H MCH 33.2 33.0 MCHC 31.7 L 32.1 RDW 15.1 H 14.9 H Plt Count 417 H 463 H MPV 9.0 8.8 Immature Gran % (Auto) 0.6 H 0.4 Neut % (Auto) 68.7 74.9 H Lymph % (Auto) 15.1 L 11.4 L [place] % (Auto) 11.0 H 9.5 H Eos % (Auto) 4.3 3.5 Baso % (Auto) 0.3 0.3 Lymph # (Auto) 1.06 0.89 L [place] # (Auto) 0.8 H 0.7 H Eos # (Auto) 0.3 0.3 Baso # (Auto) 0.0 0.0 Abs Immat Gran (auto) 0.04 H 0.03 Absolute Neuts (auto) 4.8 5.9 Absolute Nucleated RBC 0.0 0.0 Nucleated RBC % 0.0 0.
== END 2023-02-02 16:45 | disposition home or self-care (01) | DRG 251 ==
LOC: ANHED 23:23 → ANH3MEDSUR 02-02 01:28
PROVIDERS: Admitting Provider Internal Medicine; Emergency Provider Emergency Medicine; Visit Provider Internal Medicine Critical Care Medicine
DX: R10.84 Generalized abdominal pain (principal); R18.8 Other ascites; R11.2 Nausea with vomiting, unspecified; C78.6 Secondary malignant neoplasm of retroperitoneum and peritoneum; F17.210 Nicotine dependence, cigarettes, uncomplicated; Z85.820 Personal history of malignant melanoma of skin; Z90.710 Acquired absence of both cervix and uterus; Z90.722 Acquired absence of ovaries, bilateral
CPT/HCPCS: 36415; 74177; 80048; 80053; 81001; 83690; 85025; 96361; 96374; 96375; 96376; 99285; A9270; G0378; G0379; J1170; J1650; J1940; J2270; J2405; J3480; J7030; J7040; Q9967